=== PATIENT | female | born 1935 | race Caucasian/White ===

== ENCOUNTER 2017-10-05 16:45 | Inpatient (IN) | payer MEDICARE ==
[~2017-10-05] VITALS: Ht 157.5 cm; Wt 65.3 kg
[2017-10-05] VITALS (8 sets, daily range): BP systolic 130–176; BP diastolic 71–85; PULSE 82–98; RESP 16–22; TEMP 96.4–97.7; O2SAT 95–98
[~2017-10-05 16:45] MED LIST: ANTI2TAB PO; ATOR40TA PO; LOSA25TA31 PO; NAPR220T95 PO; ZOFR4TAB3 PO
[2017-10-05] MEDS ORDERED: LOSA25TA PO (17:03)
[2017-10-05] MEDS ORDERED: ATOR40TA16 PO (17:03)
[2017-10-05] MEDS ORDERED: [UNRECOGNIZED DRUG - OTHER] (17:03)
[2017-10-05] MEDS ORDERED: methylPREDNISolone SOD SUCC 125 MG/2 ML VIAL IV PUSH ONE (17:15)
[2017-10-05] MEDS: RESP: ALBUTEROL 2.5 MG/IPRATROPIUM 0.5 MG NEB (SCH) INH (17:20)
--- NOTE | 2017-10-05 17:22 | PD ---
HPI Chief Complaint: Respiratory Symptoms Time Seen by Provider: 16:57 Travel History International Travel<30 days: No Contact w/Intl Traveler<30days: No Traveled to known affect area: No History of Present Illness HPI 82yo F with PMH of asthma, HTN and pacemaker presents to the ED with c/o cough, sob and mild headache today. Said she went to urgent care and they sent her here because they said she was wheezing very badly. Pt was not given any medication at urgent care. Denies any fever, visual changes, chest pain, n/v, abdominal pain, focal weakness or numbness. Pt was using albuterol but just ran out of it. Said headache is mild, frontal and intermittent. PFSH Past Medical History Arthritis: Yes Heart Rhythm Problems: Yes (hilda) Cardiovascular Problems: Yes (htn on meds) High Cholesterol: Yes Diminished Hearing: No Respiratory: Yes (asthma) Influenza Vaccination: No ?: Not Menopausal: Yes Past Surgical History Cardiac Surgery: Yes (pacemaker ) Pacemaker: Yes ([employer] placed 2012) Tonsillectomy: Yes Other Surgery: Yes (thyroid -goiter removed - varicose veins -vein stripping) Social History Alcohol Use: Yes (occas. beer) Tobacco Use: No (40 yrs ago approx 1 ppd cigs) Substance Use: No Allergies-Medications (Allergen,Severity, Reaction): Coded Allergies: doxycycline (Verified Allergy, Intermediate, dizzy, 10/05/17) aspirin (Unverified Allergy, Mild, DIZZY, 10/05/17) Reported Meds & Prescriptions Reported Meds & Active Scripts Active Reported Pred Forte Opth 1% (Prednisolone Acetate Opth 1%) 1% Susp 1 Drop EACH EYE DAILY [AnuityIH powder] 100 Mg Losartan (Losartan Potassium) 25 Mg Tab 25 Mg PO DAILY Atorvastatin (Atorvastatin Calcium) 40 Mg Tab 40 Mg PO HS Review of Systems Except as stated in HPI: all other systems reviewed are Neg Physical Exam Narrative GENERAL: 82yo F in mild distress. SKIN: Focused skin assessment warm/dry. HEAD: Atraumatic. Normocephalic. EYES: Pupils equal and round at 3mm bilaterally. EOMI. No scleral icterus. No injection or drainage. ENT: No nasal bleeding or discharge. Mucous membranes pink and moist. NECK: Trachea midline. No JVD. CARDIOVASCULAR: Regular rate and rhythm. No murmur appreciated. RESPIRATORY: + accessory muscle use. Expiratory wheezing bilaterally. GASTROINTESTINAL: Abdomen soft, non-tender, nondistended. MUSCULOSKELETAL: No obvious deformities. No clubbing. No cyanosis. No edema. NEUROLOGICAL: Awake and alert. No obvious cranial nerve deficits. Motor grossly within normal limits in all extremities. Sensation intact. Normal speech. PSYCHIATRIC: Appropriate mood and affect; insight and judgment normal. Data Data Last Documented VS Vital Signs Date Time Temp Pulse Resp B/P (MAP) Pulse Ox O2 Delivery O2 Flow Rate FiO2 10/05/17 19:00 88 22 160/84 (109) 98 Room Air 10/05/17 16:49 97.7 Orders Orders Complete Blood Count With Diff (10/05/17 17:14) Basic Metabolic Panel (Bmp) (10/05/17 17:14) Troponin I (10/05/17 17:14) Chest, Single Ap (10/05/17 17:14) Methylprednisolone So Succ Inj (Solumedr (10/05/17 17:15) Albuterol-Ipratropium Neb (Duoneb Neb) (10/05/17 17:15) Guaifen-Cod 200-20 Mg/10ml Liq (Robituss (10/05/17 18:15) Albuterol Neb (Albuterol Neb) (10/05/17 18:15) Acetaminophen (Tylenol) (10/05/17 18:45) Admit Order (Ed Use Only) (10/05/17 19:10) Labs Laboratory Tests Test 10/05/17 17:30 White Blood Count 7.1 TH/MM3 Red Blood Count 4.85 MIL/MM3 Hemoglobin 15.1 GM/DL Hematocrit 45.3 % Mean Corpuscular Volume 93.3 FL Mean Corpuscular Hemoglobin 31.2 PG Mean Corpuscular Hemoglobin Concent 33.5 % Red Cell Distribution Width 12.0 % Platelet Count 174 TH/MM3 Mean Platelet Volume 8.8 FL Neutrophils (%) (Auto) 60.4 % Lymphocytes (%) (Auto) 24.6 % Monocytes (%) (Auto) 6.3 % Eosinophils (%) (Auto) 7.2 % Basophils (%) (Auto) 1.5 % Neutrophils # (Auto) 4.4 TH/MM3 Lymphocytes # (Auto) 1.7 TH/MM3 Monocytes # (Auto) 0.4 TH/MM3 Eosinophils # (Auto) 0.5 TH/MM3 Basophils # (Auto) 0.1 TH/MM3 CBC Comment DIFF FINAL Differential Comment Blood Urea Nitrogen 11 MG/DL Creatinine 0.73 MG/DL Random Glucose 104 MG/DL Calcium Level 8.8 MG/DL Sodium Level 142 MEQ/L Potassium Level 3.9 MEQ/L Chloride Level 109 MEQ/L Carbon Dioxide Level 25.6 MEQ/L Anion Gap 7 MEQ/L Estimat Glomerular Filtration Rate 77 ML/MIN Troponin I LESS THAN 0.02 NG/ML MDM Medical Decision Making Medical Screen Exam Complete: Yes Emergency Medical Condition: Yes Interpretation(s) EKG: NSR 80bpm. Normal axis. RBBB. Differential Diagnosis Asthma exacerbation vs. pneumonia vs. ACS vs. URI Narrative Course 82yo F with cough, sob and mild headache today. Pt has wheezing diffusely and given duonebs x3 and methylprednisolone. Labs reviewed, no leukocytosis. H/H normal. Troponin negative. CXR negative. Pt is saturating at 95% on RA. Afebrile. However, pt is tachypneic and reevaluated at bedside. Pt said she does not feel any better so given robitussin and albuterol neb x1. Pt reevaluated at bedside and still does not feel better. Pt is still wheezing and tachypneic and RR is about 30. Will need to admit for observation for asthma exacerbation. Discussed with Dr. Powell's PA and accepted to her service. Diagnosis Primary Impression: Asthma exacerbation Qualified Codes: J45.901 - Unspecified asthma with (acute) exacerbation Admitting Information Admitting Physician Requests: Observation Jolanta Abbasi DO Oct 05, 2017 17:22
[2017-10-05 17:40] LABS: AUTOMATED NEUTROPHIL # 4.4 TH/MM3 (1.8-7.7); BASOPHIL # 0.1 TH/MM3 (0-0.2); BASOPHIL % 1.5 % (0.0-2.0); EOSINOPHIL # 0.5 TH/MM3 (0-0.4); EOSINOPHIL % 7.2 % (0.0-4.0); HEMATOCRIT 45.3 % (35.0-46.0); HEMOGLOBIN 15.1 GM/DL (11.6-15.3); LYMPH % 24.6 % (9.0-44.0); LYMPHOCYTE # 1.7 TH/MM3 (1.0-4.8); MEAN CELL VOLUME 93.3 FL (80.0-100.0); MEAN CORPUSCULAR HEMOGLOBIN 31.2 PG (27.0-34.0); MEAN CORPUSCULAR HGB CONC 33.5 % (32.0-36.0); MEAN PLATELET VOLUME 8.8 FL (7.0-11.0); MONO % 6.3 % (0.0-8.0); MONOCYTE # 0.4 TH/MM3 (0-0.9); NEUT % 60.4 % (16.0-70.0); PLATELET COUNT 174 TH/MM3 (150-450); RED BLOOD COUNT 4.85 MIL/MM3 (4.00-5.30); WHITE BLOOD COUNT 7.1 TH/MM3 (4.0-11.0)
[2017-10-05 17:50] LABS: CHLORIDE 109 MEQ/L (98-107); SODIUM (NA) 142 MEQ/L (136-145)
[2017-10-05 17:53] LABS: BICARBONATE 25.6 MEQ/L (21.0-32.0); CALCIUM 8.8 MG/DL (8.5-10.1); GLUCOSE,RANDOM 104 MG/DL (74-106)
[2017-10-05 17:54] LABS: BLOOD UREA NITROGEN 11 MG/DL (7-18)
[2017-10-05 17:57] LABS: CREATININE 0.73 MG/DL (0.50-1.00); GLOMERULAR FILTRATION RATE 77 ML/MIN (>89)
--- NOTE | 2017-10-05 17:57 | RADRPT ---
EXAM DATE: 10/05/2017 5:53 PM EDT AGE/SEX: 82 years / Female INDICATIONS: Cough, congestion, and shortness of breath. CLINICAL DATA: This is the patient's initial encounter. Patient reports that signs and symptoms have been present for 3 days and indicates a pain score of 0/10. MEDICAL/SURGICAL HISTORY: None. Pacemaker. COMPARISON: No prior exams available for comparison. FINDINGS: Pacemaker in good position in the left. The heart and pulmonary vascularity are normal. The lungs are clear. Mild degenerative changes both AC joints. CONCLUSION: Negative chest for acute disease Electronically signed by: Trell Ureña MD 10/05/2017 5:56 PM EDT
[2017-10-05 18:01] LABS: TROPONIN I LESS THAN 0.02 NG/ML (0.02-0.05)
[2017-10-05] MEDS ORDERED: guaiFENesin/CODEINE SYRUP 200 MG/20 MG/10 ML CUP PO ONE (18:15)
[2017-10-05] MEDS ORDERED: RESP: ALBUTEROL 2.5 MG/3 ML NEB (SCH) NEB ONE (18:15)
[2017-10-05] MEDS ORDERED: ACETAMINOPHEN 325 MG TAB PO ONE (18:45)
[2017-10-05] MEDS ORDERED: RESP: ALBUTEROL 2.5 MG/3 ML NEB (PRN) NEB (19:15)
[2017-10-05] MEDS ORDERED: SODIUM CHLORIDE 0.9% FLUSH 10 ML FLUSH IV FLUSH PRN (19:15)
[2017-10-05] MEDS ORDERED: NALOXONE HCL 0.4 MG/ML AMP IV PUSH PRN (19:15)
[2017-10-05] MEDS ORDERED: ACETAMINOPHEN 325 MG TAB PO PRN (19:15)
[2017-10-05] MEDS ORDERED: PRED1SUS EACH EYE (20:40)
[2017-10-05] MEDS: RESP: ALBUTEROL 2.5 MG/IPRATROPIUM 0.5 MG NEB (SCH) NEB (21:01)
[2017-10-05] MEDS: ENOXAPARIN SODIUM 40 MG/0.4 ML SYRINGE SQ SCH (21:52)
[2017-10-05] MEDS: SODIUM CHLORIDE 0.9% FLUSH 10 ML FLUSH IV FLUSH SCH (21:52)
[2017-10-05] MEDS: ATORVASTATIN 40 MG TAB PO SCH (21:52)
[2017-10-06] VITALS (10 sets, daily range): BP systolic 107–150; BP diastolic 56–74; PULSE 88–107; RESP 20–21; TEMP 96.5–98.7; O2SAT 95–100
[2017-10-06] MEDS: methylPREDNISolone SOD SUCC 125 MG/2 ML VIAL IV PUSH SCH ×2 (00:46→05:39)
[2017-10-06] MEDS: RESP: ALBUTEROL 2.5 MG/IPRATROPIUM 0.5 MG NEB (SCH) NEB (03:44)
[2017-10-06 05:33] LABS: AUTOMATED NEUTROPHIL # 9.3 TH/MM3 (1.8-7.7); BASOPHIL % 0.3 % (0.0-2.0); EOSINOPHIL % 0.1 % (0.0-4.0); HEMATOCRIT 44.5 % (35.0-46.0); HEMOGLOBIN 14.7 GM/DL (11.6-15.3); LYMPH % 6.3 % (9.0-44.0); LYMPHOCYTE # 0.6 TH/MM3 (1.0-4.8); MEAN CELL VOLUME 94.3 FL (80.0-100.0); MEAN CORPUSCULAR HEMOGLOBIN 31.2 PG (27.0-34.0); MEAN CORPUSCULAR HGB CONC 33.1 % (32.0-36.0); MEAN PLATELET VOLUME 9.3 FL (7.0-11.0); MONO % 0.5 % (0.0-8.0); NEUT % 92.8 % (16.0-70.0); PLATELET COUNT 182 TH/MM3 (150-450); RED BLOOD COUNT 4.72 MIL/MM3 (4.00-5.30); RED CELL DISTRIBUTION WIDTH 12.2 % (11.6-17.2); WHITE BLOOD COUNT 9.9 TH/MM3 (4.0-11.0)
[2017-10-06 05:54] LABS: BICARBONATE 14.5 MEQ/L (21.0-32.0); CREATININE 1.3 MG/DL (0.50-1.00)
[2017-10-06] MEDS ORDERED: RESP: ALBUTEROL 2.5 MG/IPRATROPIUM 0.5 MG NEB (SCH) NEB (08:00)
[2017-10-06] MEDS: SODIUM CHLORIDE 0.9% FLUSH 10 ML FLUSH IV FLUSH SCH ×2 (08:21→21:45)
[2017-10-06] MEDS: LOSARTAN 25 MG TAB PO SCH (08:21)
--- NOTE | 2017-10-06 08:41 | HHI.HP ---
[facility] Service [facility] Primary Care Physician Ed Suresh MD Admission Diagnosis Asthma exacerbation Diagnoses: (1) Asthma exacerbation Chief Complaint: Shortness of breath Cough Travel History International Travel<30 Days: No Contact w/Intl Traveler <30 Da: No Traveled to Known Affected Are: No History of Present Illness This is a pleasant 82-year-old female patient with a known medical history of hypertension, hyperlipidemia, and asthma who presented to the ED with complaints of worsening nonproductive cough, shortness of breath and headache. Patient states that she went to the urgent care yesterday due to audible wheezing and worsening shortness of breath. Patient states that the urgent care sent her over to the emergency department. Patient states that her symptoms started roughly around Wednesday and had noticed she was using her rescue inhaler more often than normal up to 3 times per day. Patient actually saw her PCP on Wednesday for checkup and blood work which were reportedly unremarkable. She does state that she follows with the undertaker assistant but does not remember the name. She also follows with a manager lab for management of her pacemaker. Patient denies any recent illness including fever, chills, abdominal pain, nausea, vomiting, diarrhea or dysuria. She does admit to a mild headache associated with her cough and shortness of breath. She does admit to overall fatigue despite adequate appetite and sleeping well. PCP is Dr. Suresh. Review of Systems Constitutional: COMPLAINS OF: Fatigue, DENIES: Fever, Chills Eyes: DENIES: Blurred vision, Diplopia Ears, nose, mouth, throat: DENIES: Hearing loss Respiratory: COMPLAINS OF: Cough, Wheezing, Shortness of breath, DENIES: Sputum production Cardiovascular: DENIES: Chest pain, Palpitations Gastrointestinal: DENIES: Abdominal pain, Black stools, Bloody stools, Constipation, Diarrhea, Nausea, Vomiting Musculoskeletal: DENIES: Joint pain Hematologic/lymphatic: DENIES: Bruising Immunologic/allergic: DENIES: Eczema Neurologic: DENIES: Abnormal gait Psychiatric: COMPLAINS OF: Anxiety Except as stated in HPI: all other systems reviewed are Neg Past Family Social History Past Medical History Asthma Hyperlipidemia Hypertension Past Surgical History Pacemaker placement due to bradycardia, Drimmi 2013 Tonsillectomy Removal of thyroid goiter Vein stripping for varicose veins Bilateral cataracts Reported Medications Active Reported Pred Forte Opth 1% (Prednisolone Acetate Opth 1%) 1% Susp 1 Drop EACH EYE DAILY [AnuityIH powder] 100 Mg Losartan (Losartan Potassium) 25 Mg Tab 25 Mg PO DAILY Atorvastatin (Atorvastatin Calcium) 40 Mg Tab 40 Mg PO HS Allergies: Coded Allergies: doxycycline (Verified Allergy, Intermediate, dizzy, 10/05/17) aspirin (Unverified Allergy, Mild, DIZZY, 10/05/17) Active Ordered Medications Current Medications Medications (Trade) Dose Ordered Sig/Halina Route Start Time Stop Time Status Last Admin (NS Flush) 2 ml UNSCH PRN IV FLUSH 10/05/17 19:15 (NS Flush) 2 ml BID IV FLUSH 10/05/17 21:00 10/06/17 08:21 (Tylenol) 650 mg Q4H PRN PO 10/05/17 19:15 (Lovenox Inj) 40 mg Q24H SQ 10/05/17 20:00 10/05/17 21:52 (Narcan Inj) 0.4 mg UNSCH PRN IV PUSH 10/05/17 19:15 (Lipitor) 40 mg HS PO 10/05/17 21:00 10/05/17 21:52 (Cozaar) 25 mg DAILY PO 10/06/17 09:00 10/06/17 08:21 (Albuterol Neb) 2.5 mg Q2HR NEB PRN NEB 10/05/17 19:15 Sodium Chloride 1,000 ml @ 84 mls/hr [id number] IV 10/06/17 09:00 (D50w (Vial) Inj) 50 ml UNSCH PRN IV PUSH 10/06/17 09:15 (Glucagon Inj) 1 mg UNSCH PRN OTHER 10/06/17 09:15 (NovoLOG SUPPLEMENTAL SCALE) 1 ACHS SLIDING SCALE SQ 10/06/17 12:00 (SoluMEDROL INJ) 40 mg Q8HR IV PUSH 10/06/17 14:00 (Pred Forte 1% Opth Susp) 1 drop DAILY EACH EYE 10/06/17 10:30 (Atrovent Neb) 0.5 mg Q6HR WHILE AWAKE NEB NEB 10/06/17 14:00 Family History Denies any significant family medical history. Social History Does admit to smoking 1 pack/day cigarettes, she quit 40 years ago. Does admit to occasional beer once per month. Denies any illicit drug use. Physical Exam Vital Signs Vital Signs Date Time Temp Pulse Resp B/P (MAP) Pulse Ox O2 Delivery O2 Flow Rate FiO2 10/06/17 08:00 98.2 100 21 142/74 (96) 96 10/06/17 07:41 100 21 10/06/17 04:00 96.5 107 20 120/65 (83) 95 10/06/17 00:00 96.5 105 20 107/56 (73) 96 10/05/17 21:02 96 21 10/05/17 20:30 96.4 92 20 130/76 (94) 98 10/05/17 20:15 98 10/05/17 20:03 91 20 132/80 (97) 97 10/05/17 19:30 90 22 132/71 (91) 98 Room Air 10/05/17 19:00 88 22 160/84 (109) 98 Room Air 10/05/17 19:00 88 22 98 Room Air 10/05/17 18:07 84 16 136/85 (102) 95 Room Air 10/05/17 17:04 95 Room Air 10/05/17 16:49 97.7 82 16 176/84 (114) 97 Physical Exam GENERAL: Well-developed, well-nourished patient in [facility]. SKIN: Warm and dry. No rash. HEAD: Normocephalic. Atraumatic. EYES: Pupils equal and round. No scleral icterus. No injection or drainage. ENT: No nasal bleeding or discharge. Mucous membranes pink and moist. NECK: Supple. Trachea midline. CARDIOVASCULAR: Sinus tachycardia. S1, S2 noted. No murmur appreciated. RESPIRATORY: No accessory muscle use. Diffuse expiratory wheezing. Breath sounds equal bilaterally. GASTROINTESTINAL: Abdomen soft, non-tender, nondistended. Normoactive bowel sounds x4. MUSCULOSKELETAL: No obvious deformities. Extremities without clubbing, cyanosis , or edema. NEUROLOGICAL: Awake and alert. No obvious cranial nerve deficits. Motor grossly within normal limits. 5/5 muscle strength in bilateral upper and lower extremities. Normal speech. PSYCHIATRIC: Appropriate mood and affect; insight and judgment normal. Laboratory Laboratory Tests Test 10/05/17 17:30 10/06/17 05:10 White Blood Count 7.1 9.9 Red Blood Count 4.85 4.72 Hemoglobin 15.1 14.7 Hematocrit 45.3 44.5 Mean Corpuscular Volume 93.3 94.3 Mean Corpuscular Hemoglobin 31.2 31.2 Mean Corpuscular Hemoglobin Concent 33.5 33.1 Red Cell Distribution Width 12.0 12.2 Platelet Count 174 182 Mean Platelet Volume 8.8 9.3 Neutrophils (%) (Auto) 60.4 92.8 Lymphocytes (%) (Auto) 24.6 6.3 Monocytes (%) (Auto) 6.3 0.5 Eosinophils (%) (Auto) 7.2 0.1 Basophils (%) (Auto) 1.5 0.3 Neutrophils # (Auto) 4.4 9.3 Lymphocytes # (Auto) 1.7 0.6 Monocytes # (Auto) 0.4 0.0 Eosinophils # (Auto) 0.5 0.0 Basophils # (Auto) 0.1 0.0 CBC Comment DIFF FINAL DIFF FINAL Differential Comment Blood Urea Nitrogen 11 19 Creatinine 0.73 1.30 Random Glucose 104 287 Calcium Level 8.8 9.0 Sodium Level 142 140 Potassium Level 3.9 3.2 Chloride Level 109 106 Carbon Dioxide Level 25.6 14.5 Anion Gap 7 20 Estimat Glomerular Filtration Rate 77 39 Troponin I LESS THAN 0.02 Result Diagram: 10/06/17 0510 10/06/17 0510 Imaging Last Impressions Chest X-Ray 10/05/17 1714 Signed Impressions: CONCLUSION: Negative chest for acute disease Septic Shock Reassessment Septic shock perfusion: reassessment completed Caprini VTE Risk Assessment Caprini VTE Risk Assessment: Mod/High Risk (score >= 2) Caprini Risk Assessment Model Point Value = 1 Point Value = 2 Point Value = 3 Point Value = 5 Age 41-60 Minor surgery BMI > 25 kg/m2 Swollen legs Varicose veins or History of unexplained or recurrent spontaneous Oral contraceptives or hormone replacement Sepsis (< 1 month) Serious lung disease, including pneumonia (< 1 month) Abnormal pulmonary function Acute myocardial infarction Congestive heart failure (< 1 month) History of inflammatory bowel disease Medical patient at bed rest Age 61-74 Arthroscopic surgery Major open surgery (> 45 min) Laparoscopic surgery (> 45 min) Malignancy Confined to bed (> 72 hours) Immobilizing plaster cast Central venous access Age >= 75 History of VTE Family history of VTE Factor V Leiden Prothrombin [id number] Lupus anticoagulant Anticardiolipin antibodies Elevated serum homocysteine Heparin-induced thrombocytopenia Other congenital or acquired thrombophilia Stroke (< 1 month) Elective arthroplasty Hip, pelvis, or leg fracture Acute spinal cord injury (< 1 month) Prophylaxis Regimen Total Risk Factor Score Risk Level Prophylaxis Regimen 0-1 Low Early ambulation 2 Moderate Order ONE of the following: *Sequential Compression Device (SCD) *Heparin 5000 units SQ BID 3-4 Higher Order ONE of the following medications: *Heparin 5000 units SQ TID *Enoxaparin/Lovenox 40 mg SQ daily (WT < 150 kg, CrCl > 30 mL/min) *Enoxaparin/Lovenox 30 mg SQ daily (WT < 150 kg, CrCl > 10-29 mL/min) *Enoxaparin/Lovenox 30 mg SQ BID (WT < 150 kg, CrCl > 30 mL/min) AND/OR *Sequential Compression Device (SCD) 5 or more Highest Order ONE of the following medications: *Heparin 5000 units SQ TID (Preferred with Epidurals) *Enoxaparin/Lovenox 40 mg SQ daily (WT < 150 kg, CrCl > 30 mL/min) *Enoxaparin/Lovenox 30 mg SQ daily (WT < 150 kg, CrCl > 10-29 mL/min) *Enoxaparin/Lovenox 30 mg SQ BID (WT < 150 kg, CrCl > 30 mL/min) AND *Sequential Compression Device (SCD) Assessment and Plan Problem List: (1) Asthma exacerbation ICD Code: J45.901 - Unspecified asthma with (acute) exacerbation Status: Acute Assessment and Plan This is a pleasant 82-year-old female patient with a known medical history of hypertension, hyperlipidemia, and asthma who presented to the ED with complaints of worsening nonproductive cough, shortness of breath and headache. Asthma exacerbation - Chest x-ray reviewed negative for any acute disease. - Was started on duo nebs as needed for shortness of breath/wheezing. Started on Atrovent. - Will continue cardiac telemetry, patient has been tachycardic. Likely secondary to steroids. Exacerbation. - Will continue IV steroids. Wean. Hyperglycemic suspect secondary to steroids. Accu-Chek while on steroids, cover with insulin as needed, tight blood sugar control. - Robitussin for cough as needed. - Supplemental O2 as needed, patient is comfortable on room air with adequate oxygen saturations. - PT this morning to work with patient, appreciate input and recommendations. Hypokalemia: Potassium 3.2 today. We will add replacement. Acute kidney injury - Creatinine 0.73 on presentation. Overnight creatinine bumped to 1.3. - Will order IV fluids. - Follow BMP this afternoon. Hyperlipidemia, chronic: We will continue home statin. Hypertension, chronic: We will continue home medications. Monitor blood pressure trends. DVT prophylaxis: SCDs. Lovenox. Problem Qualifiers (1) Asthma exacerbation: Qualified Codes: J45.901 - Unspecified asthma with (acute) exacerbation Falguni Contreras Oct 06, 2017 08:41
[2017-10-06] MEDS ORDERED: POTASSIUM CHLORIDE 10 MEQ CONTROLLED RELEASE TAB PO ONE (09:00)
[2017-10-06] MEDS: SODIUM CHLOR 0.9% 1000 ML INJ 1,000 ML IV SCH ×2 (09:00→20:59)
--- NOTE | 2017-10-06 09:13 | EKG ---
Date Performed: 10/05/2017 Time Performed: 17:01:28 PTAGE: 82 years EKG: Sinus rhythm RIGHT BUNDLE BRANCH BLOCK ABNORMAL ECG NO PREVIOUS TRACING DOCTOR: You Montalvo Interpretating Date/Time 10/06/2017 09:11:46
[2017-10-06] MEDS ORDERED: GLUCAGON 1 MG/ML VIAL OTHER PRN (09:15)
[2017-10-06] MEDS ORDERED: DEXTROSE 50% IN WATER 50 ML VIAL(D50) IV PUSH PRN (09:15)
[2017-10-06] MEDS ORDERED: guaiFENesin/DEXTROMETHORPHAN 200 MG/20 MG/10 ML CUP PO PRN (10:15)
[2017-10-06] MEDS: prednisoLONE ACETATE 1% OPHT SUSP 5 ML BTL EACH EYE SCH (11:11)
[2017-10-06] MEDS: INSULIN ASPART SUPPLEMENTAL SCALE SQ SCH ×3 (12:00→21:00)
[2017-10-06] MEDS: RESP: IPRATROPIUM 0.5 MG/2.5 ML NEB NEB SCH ×2 (13:23→20:05)
[2017-10-06 13:35] LABS: CALCIUM 9.3 MG/DL (8.5-10.1)
[2017-10-06 13:36] LABS: BICARBONATE 20.1 MEQ/L (21.0-32.0)
[2017-10-06 13:39] LABS: CREATININE 1.2 MG/DL (0.50-1.00)
[2017-10-06] MEDS ORDERED: SODIUM CHLOR 0.9% 1000 ML INJ 1,000 ML IV ONE (13:45)
[2017-10-06 14:07] LABS: LACTIC ACID SEPSIS PROTOCOL 7.5 mmol/L (0.4-2.0)
[2017-10-06] MEDS: methylPREDNISolone SOD SUCC 40 MG/1 ML VIAL IV PUSH SCH ×2 (14:10→21:45)
[2017-10-06 14:34] LABS: CHLORIDE 102 MEQ/L (98-107); SODIUM (NA) 137 MEQ/L (136-145)
[2017-10-06 14:37] LABS: ALBUMIN 3.7 GM/DL (3.4-5.0); BICARBONATE 19.4 MEQ/L (21.0-32.0); CALCIUM 9.4 MG/DL (8.5-10.1); GLUCOSE,RANDOM 283 MG/DL (74-106)
[2017-10-06 14:38] LABS: BLOOD UREA NITROGEN 21 MG/DL (7-18)
[2017-10-06 14:40] LABS: ALT (GPT) 40 U/L (10-53); AST (GOT) 17 U/L (15-37)
[2017-10-06 14:41] LABS: GLOMERULAR FILTRATION RATE 43 ML/MIN (>89)
[2017-10-06 14:42] LABS: TOTAL BILIRUBIN ADULT 0.3 MG/DL (0.2-1.0); TOTAL PROTEIN 7.7 GM/DL (6.4-8.2)
[2017-10-06 14:43] LABS: ALKALINE PHOSPHATASE 126 U/L (45-117)
[2017-10-06 18:17] LABS: ACETAMINOPHEN LESS THAN 2.0 MCG/ML (10.0-30.0)
[2017-10-06 20:53] LABS: BILIRUBIN, URINE NEG (NEG); BLOOD, URINE TRACE (NEG); GLUCOSE,URINE 1000 OR GREATER mg/dL (NEG); KETONE, URINE TRACE mg/dL (NEG); NITRITE,URINE NEG (NEG); PH, URINE 5.5 (5.0-8.5); URINE COLOR YELLOW (YELLW/STRAW); URINE LEUKOCYTE ESTERASE NEG (NEG)
[2017-10-06] MEDS: ENOXAPARIN SODIUM 40 MG/0.4 ML SYRINGE SQ SCH (20:57)
[2017-10-06 21:44] LABS: WBC, URINE 0-2 /hpf (0-5)
[2017-10-06 21:45] LABS: SQUAMOUS EPITHELIAL CELL URINE 0-5 /hpf (0-5)
[2017-10-06] MEDS: ATORVASTATIN 40 MG TAB PO SCH (21:45)
[2017-10-07] VITALS (9 sets, daily range): BP systolic 121–158; BP diastolic 67–78; PULSE 73–87; RESP 16–20; TEMP 96.5–98.2; O2SAT 94–98
[2017-10-07] MEDS: methylPREDNISolone SOD SUCC 40 MG/1 ML VIAL IV PUSH SCH ×2 (05:14→20:11)
[2017-10-07] MEDS: SODIUM CHLOR 0.9% 1000 ML INJ 1,000 ML IV SCH ×2 (05:16→17:04)
[2017-10-07 06:27] LABS: BICARBONATE 20.2 MEQ/L (21.0-32.0); CALCIUM 8.6 MG/DL (8.5-10.1); CREATININE 0.95 MG/DL (0.50-1.00); TROPONIN I 0.06 NG/ML (0.02-0.05)
[2017-10-07] MEDS: RESP: IPRATROPIUM 0.5 MG/2.5 ML NEB NEB SCH ×2 (07:38→14:16)
[2017-10-07] MEDS: prednisoLONE ACETATE 1% OPHT SUSP 5 ML BTL EACH EYE SCH (09:17)
[2017-10-07] MEDS: LOSARTAN 25 MG TAB PO SCH (09:17)
[2017-10-07] MEDS: INSULIN ASPART SUPPLEMENTAL SCALE SQ SCH ×4 (09:18→20:09)
[2017-10-07] MEDS: SODIUM CHLORIDE 0.9% FLUSH 10 ML FLUSH IV FLUSH SCH ×2 (09:19→19:28)
--- NOTE | 2017-10-07 09:56 | HHI.PR ---
Subjective Remarks Follow-up asthma exacerbation, elevated lactic acid. Patient seen and examined , sitting up in chair. States she made her bed and brush her teeth today still complains of shortness of breath and wheezing. Has been eating okay, denies any abdominal pain, nausea or vomiting. Does have mild rhabdomyolysis today with mildly elevated troponins. Denies any chest pain. EKG negative for ST changes. Vital signs stable. Afebrile. Continued IV fluid. Spoke to daughter on phone, updated about patient's status. Pulmonology consulted. Objective Vitals Vital Signs Date Time Temp Pulse Resp B/P (MAP) Pulse Ox O2 Delivery O2 Flow Rate FiO2 10/07/17 08:53 97.3 87 16 158/78 (104) 97 10/07/17 07:38 98 21 10/07/17 05:08 94 10/07/17 00:00 97.1 85 20 125/72 (89) 98 10/06/17 20:15 90 10/06/17 20:05 97 Nasal Cannula 2.00 10/06/17 20:00 96.9 90 20 140/68 (92) 96 10/06/17 16:00 97.8 92 20 136/66 (89) 97 10/06/17 13:58 100 Nasal Cannula 2.00 10/06/17 12:00 98.7 88 21 150/70 (96) 95 I/O 10/06/17 10/06/17 10/06/17 10/07/17 10/07/17 10/07/17 07:00 15:00 23:00 07:00 15:00 23:00 Intake Total 480 ml 120 ml 850 ml 1620 ml Output Total 700 ml Balance 480 ml 120 ml 150 ml 1620 ml Intake Oral 480 ml 120 ml 850 ml 720 ml IV Total 900 ml Output Urine Total 700 ml # Voids 1 3 # Bowel Movements 0 0 Result Diagram: 10/06/17 0510 10/07/17 0500 Imaging Last Impressions Chest X-Ray 10/05/17 1714 Signed Impressions: CONCLUSION: Negative chest for acute disease Objective Remarks GENERAL: Well-developed, well-nourished patient in [facility]. SKIN: Warm and dry. No rash. HEAD: Normocephalic. Atraumatic. EYES: Pupils equal and round. No scleral icterus. No injection or drainage. ENT: No nasal bleeding or discharge. Mucous membranes pink and moist. NECK: Supple. Trachea midline. CARDIOVASCULAR: Sinus tachycardia. S1, S2 noted. No murmur appreciated. RESPIRATORY: No accessory muscle use. Diffuse expiratory wheezing. Breath sounds equal bilaterally. GASTROINTESTINAL: Abdomen soft, non-tender, nondistended. Normoactive bowel sounds x4. MUSCULOSKELETAL: No obvious deformities. Extremities without clubbing, cyanosis , or edema. NEUROLOGICAL: Awake and alert. No obvious cranial nerve deficits. Motor grossly within normal limits. 5/5 muscle strength in bilateral upper and lower extremities. Normal speech. PSYCHIATRIC: Appropriate mood and affect; insight and judgment normal. A/P Problem List: (1) Asthma exacerbation ICD Code: J45.901 - Unspecified asthma with (acute) exacerbation Status: Acute Assessment and Plan This is a pleasant 82-year-old female patient with a known medical history of hypertension, hyperlipidemia, and asthma who presented to the ED with complaints of worsening nonproductive cough, shortness of breath and headache. Asthma exacerbation - Chest x-ray reviewed negative for any acute disease. - Was started on duo nebs as needed for shortness of breath/wheezing. Started on Atrovent due to tachycardia. - Will continue cardiac telemetry, patient has been tachycardic. Likely secondary to steroids. Exacerbation. - Will continue IV steroids. Wean. Hyperglycemic suspect secondary to steroids. Accu-Chek while on steroids, cover with insulin as needed, tight blood sugar control. - Robitussin for cough as needed. - Supplemental O2 as needed, patient is comfortable on room air with adequate oxygen saturations. - PT this morning to work with patient, appreciate input and recommendations. - Consult placed to pulmonology, input and recommendations Hypokalemia: Status post replacement. Resolved. Acute kidney injury. Resolved. - Creatinine 0.73 on presentation. Overnight creatinine bumped to 1.3. Now 0.95. - Continue IV fluids. Rhabdomyolysis, mild Elevated troponin possibly suspect secondary to asthma exacerbation Elevated lactic acid - Lactic acid 7.5, 6.6, 3.3. Troponin 0.06, 0.07. CPK 809. Status post 1 L NS Bolus. Continue IVF. - Serial EKGs reviewed showing controlled heart rate with RBBB. No ST changes. - Will obtain echocardiogram, follow. Patient will also undergo a Lexiscan in am, to further evaluate for any ischemia. Hyperlipidemia, chronic: Will continue home statin. Hypertension, chronic: Will continue home medications. Monitor blood pressure trends. DVT prophylaxis: SCDs. Lovenox. Problem Qualifiers (1) Asthma exacerbation: Qualified Codes: J45.901 - Unspecified asthma with (acute) exacerbation Falguni Contreras Oct 07, 2017 09:56
[2017-10-07 11:42] LABS: TROPONIN I 0.07 NG/ML (0.02-0.05)
[2017-10-07] MEDS ORDERED: RESP: ALBUTEROL 2.5 MG/IPRATROPIUM 0.5 MG NEB (PRN) NEB (14:30)
--- NOTE | 2017-10-07 18:33 | EKG ---
Date Performed: 10/07/2017 Time Performed: 10:49:09 PTAGE: 82 years EKG: Sinus rhythm RIGHT BUNDLE BRANCH BLOCK ABNORMAL ECG PREVIOUS TRACING : 10/05/2017 17.01 Since the previous tracing, no significant change noted DOCTOR: Nela Rodriguez Interpretating Date/Time 10/07/2017 18:31:45
--- NOTE | 2017-10-07 19:59 | MB ---
cc: Lynn Perrin MD, V J MD DATE: 10/07/2017 REASON FOR CONSULTATION: Asthma and respiratory distress. HISTORY OF PRESENT ILLNESS: This is an 82-year-old lady with a past history of chronic bronchitis and asthma who was admitted through the emergency room with progressive shortness of breath over the past 3 days. The patient does have a Ventolin inhaler, which apparently did not help. She has previously been seen by Dr. Chowdhury and has had CAT scans and PFTs done. Recently, she has not been on any specific medications except the rescue inhaler. She apparently also has had a lung nodule noticed on a previous CAT scan. She denies any history for hemoptysis, fevers or chills. Upon admission to the hospital, a chest x-ray was done which reportedly was clear. Since admission, she has been on IV Solu-Medrol nebulized bronchodilators and also has been on a cough medicine including Robitussin, but does not seem to be improving. White count was elevated. PAST MEDICAL HISTORY: Has included a history of recurrent bronchitis and asthma. She has a history of permanent pacemaker placement, history of hyperlipidemia and hypertension and a history for tonsillectomy remotely and thyroid resection for goiter and varicose vein stripping. She has had cataract surgery with implants. HABITS: The patient smoked 1 pack per day for 20 years and then quit. No significant alcohol use. ALLERGIES: DOXYCYCLINE AND ASPIRIN. FAMILY HISTORY: Essentially noncontributory. REVIEW OF SYSTEMS: The patient denies recent weight loss. She has had no leg swelling. Denies headaches or blackouts. She does have some sinus drainage and postnasal drip. She has epigastric distress, reflux and trouble swallowing due to some esophageal disorder and thus she takes only soft food. She has no skin rashes and has had no anxiety or depression. PHYSICAL EXAMINATION: GENERAL: This is an averagely, elderly lady who is in no acute distress. No pallor. No clubbing or peripheral edema. VITAL SIGNS: Blood pressure 130/70, pulse is 92, respirations 16, temperature 97.2. HEENT: Head is normocephalic. Pupils are reactive and equal. Tongue is moist. Throat is injected. Nasal mucosa is clear. NECK: Supple without venous distention. No thyromegaly or lymphadenopathy. CHEST: Equal movements with an increased AP diameter. Percussion note resonant throughout. Diffuse wheezes throughout both lung ferrera, prolonged expirations. HEART: The heart sounds were regular, S1 and S2 with no murmur. ABDOMEN: Soft, protuberant without masses. No organomegaly or tenderness. EXTREMITIES: No lesions. Peripheral pulses are diminished. NEUROLOGIC: Reflexes are 1+ with no gross motor deficits. Cranial nerves grossly intact. IMPRESSION: 1. Asthmatic bronchitis. 2. Chronic obstructive pulmonary disease. 3. Lung nodule. 4. History of hypertension. PLAN: The patient is already on nebulized DuoNeb solution q.i.d., which we will continue. She will be placed on Solu-Medrol 40 mg IV every 8 hours. A bedside pulmonary function study will be done. She will be placed on Zithromax 500 mg daily x 3 days. We will get a sputum culture if she coughs up any sputum. I started her on Symbicort 160/4.5 two puffs twice daily. A CT scan of the chest to evaluate the lung nodule. I will review these tests and follow the case with you. Thank you for this consultation. Lynn Perrin MD VJD/ , 07:26 PM , 07:57 PM
--- NOTE | 2017-10-07 20:02 | RADRPT ---
EXAM DATE: 10/07/2017 7:51 PM EDT AGE/SEX: 82 years / Female INDICATIONS: Lung nodule, cough, shortness of breath. CLINICAL DATA: This is the patient's initial encounter. Patient reports that signs and symptoms have been present for 1 day and indicates a pain score of 0/10. MEDICAL/SURGICAL HISTORY: Cardiovascular disease. Hypertension. Asthma. Thyroid disease. Pacem matt. Tonsillectomy. Thyroid goiter removed. RADIATION DOSE: 12.13 CTDI (mGy) COMPARISON: POI, CT CHEST W/O CONTRAST, 05/10/2017. . TECHNIQUE: Multiple contiguous axial images were obtained through the chest without contrast. Image s were obtained in suspended respiration using multiple row detector helical technique. Using automa moise exposure control and adjustment of the mA and/or kV according to patient size, radiation dose was kept as low as reasonably achievable to obtain optimal diagnostic quality images. FINDINGS: Lungs: Minimal density in the left lower lobe obscures previously identified nodule. No infiltrates or concerning nodular densities are seen. Small nodule right upper lobe is stable measuring 2 to 3 m m. Mediastinum: There is good visualization of the great vessels of the middle mediastinum. No evidenc e of mediastinal or hilar adenopathy/mass. Pleurae: No evidence of focal thickening or pleural effusion. Axillae: Unremarkable. Bony Structures: Unremarkable. Miscellaneous: The examination was extended to include the upper abdomen, and both adrenal glands ar e normal in size and configuration. CONCLUSION: 1. Nodule in the left lower lobe is obscured by minimal density, likely atelectasis. 2. No infiltrate or mass. 3. Tiny nodule right upper lobe laterally is stable and benign Electronically signed by: Chago Milligan MD 10/07/2017 8:01 PM EDT
[2017-10-07] MEDS: RESP: ALBUTEROL 2.5 MG/IPRATROPIUM 0.5 MG NEB (SCH) NEB (20:06)
[2017-10-07] MEDS: ENOXAPARIN SODIUM 40 MG/0.4 ML SYRINGE SQ SCH (20:09)
[2017-10-07] MEDS: ATORVASTATIN 40 MG TAB PO SCH (20:09)
[2017-10-07] MEDS: BUDESONIDE-FORMOTEROL 160/4.5 MCG INHALER INH SCH (20:11)
[2017-10-08] VITALS (9 sets, daily range): BP systolic 124–162; BP diastolic 70–79; PULSE 68–103; RESP 18–20; TEMP 96.4–97.3; O2SAT 94–99
[2017-10-08 05:05] LABS: AUTOMATED NEUTROPHIL # 16.8 TH/MM3 (1.8-7.7); BASOPHIL # 0.3 TH/MM3 (0-0.2); BASOPHIL % 1.6 % (0.0-2.0); EOSINOPHIL % 0.1 % (0.0-4.0); HEMATOCRIT 39.5 % (35.0-46.0); LYMPH % 6.5 % (9.0-44.0); LYMPHOCYTE # 1.2 TH/MM3 (1.0-4.8); MEAN CELL VOLUME 93.7 FL (80.0-100.0); MEAN CORPUSCULAR HEMOGLOBIN 30.8 PG (27.0-34.0); MEAN CORPUSCULAR HGB CONC 32.9 % (32.0-36.0); MEAN PLATELET VOLUME 9.7 FL (7.0-11.0); MONO % 1.5 % (0.0-8.0); MONOCYTE # 0.3 TH/MM3 (0-0.9); NEUT % 90.3 % (16.0-70.0); PLATELET COUNT 157 TH/MM3 (150-450); RED BLOOD COUNT 4.21 MIL/MM3 (4.00-5.30); RED CELL DISTRIBUTION WIDTH 12.6 % (11.6-17.2); WHITE BLOOD COUNT 18.6 TH/MM3 (4.0-11.0)
[2017-10-08 05:14] LABS: CALCIUM 8.3 MG/DL (8.5-10.1)
[2017-10-08 05:15] LABS: BICARBONATE 23.6 MEQ/L (21.0-32.0)
[2017-10-08 05:18] LABS: CREATININE 0.76 MG/DL (0.50-1.00)
[2017-10-08] MEDS: RESP: ALBUTEROL 2.5 MG/IPRATROPIUM 0.5 MG NEB (SCH) NEB ×3 (07:21→19:33)
[2017-10-08] MEDS: INSULIN ASPART SUPPLEMENTAL SCALE SQ SCH ×4 (08:07→21:39)
[2017-10-08] MEDS: SODIUM CHLOR 0.9% 1000 ML INJ 1,000 ML IV SCH ×2 (08:32→21:29)
[2017-10-08] MEDS: LOSARTAN 25 MG TAB PO SCH (08:32)
[2017-10-08] MEDS: AZITHROMYCIN 250 MG TAB PO SCH (08:32)
[2017-10-08] MEDS: methylPREDNISolone SOD SUCC 40 MG/1 ML VIAL IV PUSH SCH ×2 (08:33→16:38)
[2017-10-08] MEDS: prednisoLONE ACETATE 1% OPHT SUSP 5 ML BTL EACH EYE SCH (08:33)
[2017-10-08] MEDS: SODIUM CHLORIDE 0.9% FLUSH 10 ML FLUSH IV FLUSH SCH ×2 (08:34→21:29)
[2017-10-08] MEDS: BUDESONIDE-FORMOTEROL 160/4.5 MCG INHALER INH SCH ×2 (08:34→21:29)
--- NOTE | 2017-10-08 08:42 | HHI.PR ---
Subjective Remarks Follow-up asthma exacerbation, elevated troponin and elevated lactic acid and rhabdomyolysis. Patient seen and examined, sitting in wheelchair ready to go down to [facility] [employer] for [facility]. Patient states she still feels short of breath with exertion. Appears to be winded while sitting in the chair. Pulmonology saw patient yesterday, appreciate input recommendations. Vital signs also are stable overnight. Afebrile. Wheezing continued. CPK trending down. Objective Vitals Vital Signs Date Time Temp Pulse Resp B/P (MAP) Pulse Ox O2 Delivery O2 Flow Rate FiO2 10/08/17 07:50 96.8 75 18 162/79 (106) 98 10/08/17 07:22 97 21 10/08/17 04:00 96.4 68 20 136/76 (96) 97 10/08/17 00:00 96.6 74 20 138/74 (95) 96 10/07/17 20:05 98 21 10/07/17 20:00 96.5 74 20 121/67 (85) 96 10/07/17 16:24 98.2 75 18 150/75 (100) 98 10/07/17 13:30 97.4 77 18 143/75 (97) 97 10/07/17 09:18 73 10/07/17 08:53 97.3 87 16 158/78 (104) 97 I/O 10/07/17 10/07/17 10/07/17 10/08/17 10/08/17 10/08/17 07:00 15:00 23:00 07:00 15:00 23:00 Intake Total 1620 ml 1200 ml 0 ml 1000 ml Balance 1620 ml 1200 ml 0 ml 1000 ml Intake Oral 720 ml 1200 ml 0 ml IV Total 900 ml 1000 ml # Voids 3 3 3 # Bowel Movements 0 Result Diagram: 10/08/17 0430 10/08/17 0430 Imaging Last Impressions Chest CT 10/07/17 1926 Signed Impressions: CONCLUSION: 1. Nodule in the left lower lobe is obscured by minimal density, likely atelec tasis. 2. No infiltrate or mass. 3. Tiny nodule right upper lobe laterally is stable and benign Chest X-Ray 10/05/17 6744 Signed Impressions: CONCLUSION: Negative chest for acute disease Objective Remarks GENERAL: Well-developed, well-nourished patient in NAD. SKIN: Warm and dry. No rash. HEAD: Normocephalic. Atraumatic. EYES: Pupils equal and round. No scleral icterus. No injection or drainage. ENT: No nasal bleeding or discharge. Mucous membranes pink and moist. NECK: Supple. Trachea midline. CARDIOVASCULAR: Sinus tachycardia. S1, S2 noted. No murmur appreciated. RESPIRATORY: No accessory muscle use. Diffuse expiratory wheezing. Breath sounds equal bilaterally. GASTROINTESTINAL: Abdomen soft, non-tender, nondistended. Normoactive bowel sounds x4. MUSCULOSKELETAL: No obvious deformities. Extremities without clubbing, cyanosis , or edema. NEUROLOGICAL: Awake and alert. No obvious cranial nerve deficits. Motor grossly within normal limits. 5/5 muscle strength in bilateral upper and lower extremities. Normal speech. PSYCHIATRIC: Appropriate mood and affect; insight and judgment normal. A/P Problem List: (1) Asthma exacerbation ICD Code: J45.901 - Unspecified asthma with (acute) exacerbation Status: Acute Assessment and Plan This is a pleasant 82-year-old female patient with a known medical history of hypertension, hyperlipidemia, and asthma who presented to the ED with complaints of worsening nonproductive cough, shortness of breath and headache. Asthma exacerbation Lung nodule - Chest x-ray reviewed negative for any acute disease. - Was started on duo nebs as needed for shortness of breath/wheezing. Started on Atrovent. - Will continue cardiac telemetry, patient has been tachycardic. Likely secondary to steroids. Exacerbation. - Will continue IV steroids. Pulmonology increased to 40 mg IV 3 times daily. - Hyperglycemic suspect secondary to steroids. Accu-Chek while on steroids, cover with insulin as needed, tight blood sugar control. - Robitussin for cough as needed. - Supplemental O2 as needed, patient is comfortable on room air with adequate oxygen saturations. - PT evaluation, appreciate input and recommendations. - Consult placed to pulmonology, appreciate input recommendations. PFTs to be done today. Placed on Zithromax. Sputum culture. Added Symbicort. - CT scan was ordered to evaluate lung nodule. CT results showing nodule in the left lower lobe. No infiltrate or mass. Tiny nodule right upper lobe laterally stable benign. Hypokalemia: Status post replacement. Resolved. Acute kidney injury. Resolved. - Creatinine 0.73 on presentation. Overnight creatinine bumped to 1.3. Now 0.95. - Continue IV fluids. Rhabdomyolysis, mild Elevated troponin possibly suspect secondary to asthma exacerbation Elevated lactic acid - Lactic acid 7.5, 6.6, 3.3. Troponin 0.06, 0.07. CPK 809. Status post 1 L NS Bolus. Continue IVF. - CPK improving today. Follow. - Serial EKGs reviewed showing controlled heart rate with RBBB. No ST changes. - Will obtain echocardiogram, pending. - Patient underwent Lexiscan today, follow results. Hyperlipidemia, chronic: Will continue home statin. Hypertension, chronic: Will continue home medications. Monitor blood pressure trends. DVT prophylaxis: SCDs. Lovenox. Problem Qualifiers (1) Asthma exacerbation: Qualified Codes: J45.901 - Unspecified asthma with (acute) exacerbation Falguni Contreras Oct 08, 2017 08:42
[2017-10-08] MEDS ORDERED: REGADENOSON INJ 0.4 MG/5 ML SYR IV ONE (09:24)
--- NOTE | 2017-10-08 11:35 | RADRPT ---
EXAM DATE: 10/08/2017 10:07 AM EDT AGE/SEX: 82 years / Female INDICATIONS:Angina. Right bundle branch block Substernal chest pain. CLINICAL DATA: This is the patient's initial encounter. Patient reports that signs and symptoms have been present for 1 day and indicates a pain score of 3/10. MEDICAL/SURGICAL HISTORY: Hypertension. Thyroidectomy. Tonsillectomy. Pacemaker. COMPARISON: No prior exams available for comparison. DOSE: 8.5 mCi Tc 99m Myoview at rest 25.4 mCi [id number] at stress 0.4 mg Lexiscan STRESS SYMPTOMS: Weird feeling and dyspnea. EJECTION FRACTION: 65 % TECHNIQUE: The patient underwent pharmacologic stress with infusion of prescribed dose. Continuous ECG tracing was monitored during stress. Gated SPECT imaging was performed after stress and conventi onal SPECT imaging was performed at rest. The examination was performed on a SPECT /CT scanner, both attenuation and non-corrected datasets were reviewed. FINDINGS: Distribution: The maximum perfused segment at stress is in the anterior lateral wall wall. Perfusion Study: The pattern of perfusion at stress is within normal limits. Gated Study: There are intact wall motion and wall thickening without hypokinetic or dyskinetic segm ents. The ejection fraction is calculated at 65%. RISK CATEGORY: Low (<1% Annual Motality Rate) CONCLUSION: 1. Negative for stress-induced ischemia. Correlate with right bundle branch block Electronically signed by: Trell Ureña MD 10/08/2017 11:34 AM EDT
--- NOTE | 2017-10-08 12:04 | ECHRPT ---
Indication: CHEST PAIN CONCLUSIONS Normal left ventricular size. Mild concentric left ventricular hypertrophy. The left ventricular systolic function is normal with an estimated ejection fraction in the range of 55-60%. Mild aortic valve regurgitation. There is trace tricuspid valve regurgitation. The estimated pulmonary arterial pressure is 29.9 mmHg. BP: 136 / 76 HR: Rhythm: Sinus MEASUREMENTS (Male / Female) Normal Values Technical Quality:Fair 2D ECHO LV Diastolic Diameter PLAX 4.2 cm 4.2 - 5.9 / 3.9 - 5.3 cm LV Systolic Diameter PLAX 3.1 cm IVS Diastolic Thickness 1.2 cm 0.6 - 1.0 / 0.6 - 0.9 cm LVPW Diastolic Thickness 1.2 cm 0.6 - 1.0 / 0.6 - 0.9 cm LV Relative Wall Thickness 0.6 RV Internal Dim ED PLAX 2.5 cm LVOT Diameter 1.8 cm Aortic Root Diameter 3.0 cm LA Systolic Diameter LX 2.8 cm 3.0 - 4.0 / 2.7 - 3.8 cm M-MODE AV Cusp Separation MM 1.9 cm DOPPLER AV Peak Velocity 153.0 cm/s AV Peak Gradient 9.4 mmHg AV Mean Gradient 5.0 mmHg AV Velocity Time Integral 29.0 cm AI Peak Velocity 456.0 cm/s AI Peak Gradient 83.2 mmHg AI Pressure Half Time 592.0 ms LVOT Peak Velocity 110.0 cm/s LVOT Peak Gradient 4.8 mmHg LVOT Velocity Time Integral 19.8 cm AV Area Cont Eq vti 1.7 cm AV Area Cont Eq pk 1.8 cm Mitral E Point Velocity 84.4 cm/s LV E' Lateral Velocity 7.1 cm/s Mitral E to LV E' Lateral Ratio 11.9 LV E' Septal Velocity 5.9 cm/s Mitral E to LV E' Septal Ratio 14.4 TR Peak Velocity 223.0 cm/s TR Peak Gradient 19.9 mmHg Right Atrial Pressure 10.0 mmHg Pulmonary Artery Systolic Pressu 29.9 mmHg Right Ventricular Systolic Press 29.9 mmHg PV Peak Velocity 79.0 cm/s PV Peak Gradient 2.5 mmHg FINDINGS LEFT VENTRICLE Normal left ventricular size. Mild concentric left ventricular hypertrophy. The left ventricular systolic function is normal with an estimated ejection fraction in the range of 55-60%. RIGHT VENTRICLE Normal right ventricular size and systolic function. LEFT ATRIUM The left atrial size is normal. RIGHT ATRIUM The right atrial size is normal. ATRIAL SEPTUM No atrial level shunt is demonstrated by color flow Doppler interrogation. AORTA The aortic root and proximal ascending aorta are normal in size on limited imaging. MITRAL VALVE Structurally normal mitral valve. No mitral valve stenosis or regurgitation. AORTIC VALVE Mild aortic valve regurgitation. TRICUSPID VALVE There is trace tricuspid valve regurgitation. The estimated pulmonary arterial pressure is 29.9 mmHg. PULMONARY VALVE No pulmonary valve regurgitation or stenosis. VESSELS The inferior vena cava is normal in size. PERICARDIUM No pericardial effusion. You Montalvo MD, FACC (Electronically Signed) Final Date:08 October 2017 12:03
--- NOTE | 2017-10-08 12:51 | TR ---
Date Performed: 10/08/2017 Time Performed: 09:15:38 DOCTOR: Nela Rodriguez DRUG LIST: CLINICAL HISTORY: CHEST PAIN REASON FOR TEST: Chest pain REASON FOR ENDING: OBSERVATION: CONCLUSION: Lexiscan stress test was performed under standard four minute protocol. Radionuclid e was injected one minute prior to ending the test. No electrocardiographic abormalities were present to suggest ischemia. Nuclear imaging and interpretation are pending. COMMENTS: no ischemia
--- NOTE | 2017-10-08 19:20 | HHI.PR ---
Subjective Remarks She was more congested today. Coughs a little. No fever.On IV fluids. CT showed bilateral lung nodules. Objective Vital Signs Date Time Temp Pulse Resp B/P (MAP) Pulse Ox O2 Delivery O2 Flow Rate FiO2 10/08/17 15:15 97.0 92 18 124/70 (88) 96 10/08/17 11:38 96.4 80 18 139/76 (97) 99 10/08/17 08:00 84 10/08/17 07:50 96.8 75 18 162/79 (106) 98 10/08/17 07:22 97 21 10/08/17 04:00 96.4 68 20 136/76 (96) 97 10/08/17 00:00 96.6 74 20 138/74 (95) 96 10/07/17 20:05 98 21 10/07/17 20:00 96.5 74 20 121/67 (85) 96 I/O 10/07/17 10/07/17 10/07/17 10/08/17 10/08/17 10/08/17 07:00 15:00 23:00 07:00 15:00 23:00 Intake Total 1620 ml 1200 ml 0 ml 1000 ml 600 ml Balance 1620 ml 1200 ml 0 ml 1000 ml 600 ml Intake Oral 720 ml 1200 ml 0 ml 600 ml IV Total 900 ml 1000 ml # Voids 3 3 3 4 # Bowel Movements 0 0 Result Diagram: 10/08/17 0430 10/08/17 0430 Objective Remarks GENERAL: This is an averagely, elderly lady who is in mild distress. No pallor. No clubbing or peripheral edema. HEENT: Head is normocephalic. Pupils are reactive and equal. Tongue is moist. Throat is injected. Nasal mucosa is clear. NECK: Supple without venous distention. No thyromegaly or lymphadenopathy. CHEST: Equal movements with an increased AP diameter. Percussion note resonant throughout. Diffuse wheezes throughout both lung ferrera, prolonged expirations. HEART: The heart sounds were regular, S1 and S2 with no murmur. ABDOMEN: Soft, protuberant without masses. No organomegaly or tenderness. EXTREMITIES: No lesions. Peripheral pulses are diminished. NEUROLOGIC: Reflexes are 1+ with no gross motor deficits. Cranial nerves grossly intact. Assessment and Plan Assessment and Plan GENERAL: This is an averagely, elderly lady who is in no acute distress. No pallor. No clubbing or peripheral edema. IMPRESSION: 1. Asthmatic bronchitis. 2. Chronic obstructive pulmonary disease. 3. Bilateral Lung nodules. 4. History of hypertension. Plan : 1. Continue Antibiotic. 2. Solumedrol 40 mg IV q8h. 3. Continue Duonebs qid. 4. Add Theodur 200 mg daily. 5. singulair 10 mg at HS 6. CBC,BMP Yosi level 7. taper steroids in am 8. Reduce IV Fluids to 30 CC. Lynn Perrin MD Oct 08, 2017 19:20
--- NOTE | 2017-10-08 19:48 | RADRPT ---
EXAM DATE: 10/08/2017 7:38 PM EDT AGE/SEX: 82 years / Female INDICATIONS: Cough and edema. CLINICAL DATA: This is the patient's subsequent encounter. Patient reports that signs and symptoms h ave been present for 4 - 6 days and indicates a pain score of 0/10. MEDICAL/SURGICAL HISTORY: Hypertension. . Thyroidectomy. Tonsillectomy. Pacemaker COMPARISON: [facility], CHEST SINGLE AP, 10/05/2017. . FINDINGS: Minimal linear atelectasis or scarring left lung base. Trace pleural fluid. Heart size within normal limits. Tortuous aorta. Pacer leads in right atrium and right ventricle. CONCLUSION: Linear atelectasis left lung base with trace pleural fluid. No pneumothorax. Electronically signed by: Augusto Ellison MD 10/08/2017 7:47 PM EDT
[2017-10-08] MEDS: ATORVASTATIN 40 MG TAB PO SCH (21:30)
[2017-10-08] MEDS: ENOXAPARIN SODIUM 40 MG/0.4 ML SYRINGE SQ SCH (21:30)
[2017-10-08] MEDS: MONTELUKAST SODIUM 10 MG TAB PO SCH (21:30)
[2017-10-09] VITALS (9 sets, daily range): BP systolic 131–184; BP diastolic 68–89; PULSE 72–85; RESP 18–20; TEMP 96.7–97.6; O2SAT 94–97
[2017-10-09] MEDS: methylPREDNISolone SOD SUCC 40 MG/1 ML VIAL IV PUSH SCH ×3 (00:59→17:32)
[2017-10-09] MEDS: RESP: ALBUTEROL 2.5 MG/IPRATROPIUM 0.5 MG NEB (SCH) NEB ×3 (08:06→19:26)
[2017-10-09] MEDS: LOSARTAN 25 MG TAB PO SCH (08:08)
[2017-10-09] MEDS: INSULIN ASPART SUPPLEMENTAL SCALE SQ SCH ×4 (08:08→20:00)
[2017-10-09] MEDS: prednisoLONE ACETATE 1% OPHT SUSP 5 ML BTL EACH EYE SCH (08:09)
[2017-10-09] MEDS: AZITHROMYCIN 250 MG TAB PO SCH (08:09)
[2017-10-09] MEDS: BUDESONIDE-FORMOTEROL 160/4.5 MCG INHALER INH SCH ×2 (08:09→19:58)
[2017-10-09] MEDS: SODIUM CHLORIDE 0.9% FLUSH 10 ML FLUSH IV FLUSH SCH ×2 (08:10→19:59)
[2017-10-09] MEDS ORDERED: SENNOSIDES 8.6 MG TAB PO PRN (08:30)
[2017-10-09] MEDS ORDERED: BISACODYL 10 MG SUPP RECTAL PRN (08:30)
[2017-10-09] MEDS ORDERED: LACTULOSE SYRUP 20 GM/30 ML CUP PO PRN (08:30)
[2017-10-09] MEDS ORDERED: MAGNESIUM HYDROXIDE SUSP 30 ML CUP PO PRN (08:30)
[2017-10-09] MEDS ORDERED: THEOPHYLLINE 200 MG EXTENDED RELEASE CAP PO SCH (09:00)
--- NOTE | 2017-10-09 09:00 | HHI.PR ---
Subjective Remarks Follow-up asthma exacerbation and elevated troponin. Patient seen and examined , sitting in chair comfortably with mild dyspnea. Patient states that she does still feel short of breath with exertion but this has improved. Patient denies any chest pain. Has been tolerating p.o. intake well with no abdominal pain, nausea vomiting. Labs improving this morning. Vital signs stable. Afebrile. Spoke to traffic sign supervisor, will see later today, waiting for clinical improvement and improvement in wheezing for discharge. Objective Vitals Vital Signs Date Time Temp Pulse Resp B/P (MAP) Pulse Ox O2 Delivery O2 Flow Rate FiO2 10/09/17 08:08 96 10/09/17 07:21 97.6 77 20 165/81 (109) 94 10/09/17 04:00 96.7 72 20 131/72 (91) 95 10/09/17 00:00 97.3 80 20 131/68 (89) 95 10/08/17 20:00 101 10/08/17 20:00 97.3 103 20 151/75 (100) 95 10/08/17 19:35 94 21 10/08/17 15:15 97.0 92 18 124/70 (88) 96 10/08/17 11:38 96.4 80 18 139/76 (97) 99 I/O 10/08/17 10/08/17 10/08/17 10/09/17 10/09/17 10/09/17 07:00 15:00 23:00 07:00 15:00 23:00 Intake Total 0 ml 1000 ml 600 ml 352 ml Balance 0 ml 1000 ml 600 ml 352 ml Intake Oral 0 ml 600 ml IV Total 1000 ml 352 ml # Voids 3 4 # Bowel Movements 0 Result Diagram: 10/08/17 0430 10/08/17 0430 Imaging Last Impressions Myocardial Perfusion Scan Nuc Med 10/08/17 0000 Signed Impressions: CONCLUSION: 1. Negative for stress-induced ischemia. Correlate with right bundle branch bl ock Chest X-Ray 10/08/17 0000 Signed Impressions: CONCLUSION: Linear atelectasis left lung base with trace pleural fluid. No pneumothorax. Chest CT 10/07/17 192 Signed Impressions: CONCLUSION: 1. Nodule in the left lower lobe is obscured by minimal density, likely atelec tasis. 2. No infiltrate or mass. 3. Tiny nodule right upper lobe laterally is stable and benign Objective Remarks GENERAL: Well-developed, well-nourished patient in NAD. SKIN: Warm and dry. No rash. HEAD: Normocephalic. Atraumatic. EYES: Pupils equal and round. No scleral icterus. No injection or drainage. ENT: No nasal bleeding or discharge. Mucous membranes pink and moist. NECK: Supple. Trachea midline. CARDIOVASCULAR: Sinus tachycardia. S1, S2 noted. No murmur appreciated. RESPIRATORY: No accessory muscle use. Left posterior lung field expiratory wheezing noted. Breath sounds equal bilaterally. GASTROINTESTINAL: Abdomen soft, non-tender, nondistended. Normoactive bowel sounds x4. MUSCULOSKELETAL: No obvious deformities. Extremities without clubbing, cyanosis , or edema. NEUROLOGICAL: Awake and alert. No obvious cranial nerve deficits. Motor grossly within normal limits. 5/5 muscle strength in bilateral upper and lower extremities. Normal speech. PSYCHIATRIC: Appropriate mood and affect; insight and judgment normal. A/P Problem List: (1) Asthma exacerbation ICD Code: J45.901 - Unspecified asthma with (acute) exacerbation Status: Acute Assessment and Plan This is a pleasant 82-year-old female patient with a known medical history of hypertension, hyperlipidemia, and asthma who presented to the ED with complaints of worsening nonproductive cough, shortness of breath and headache. Asthma exacerbation Bilateral lung nodules - Chest x-ray reviewed negative for any acute disease. - Was started on duo nebs as needed for shortness of breath/wheezing. Started on Atrovent. Added theophylline. Added Symbicort. - Will continue cardiac telemetry, patient has been tachycardic. Likely secondary to steroids. Exacerbation. - Will continue IV steroids. Pulmonology increased to 40 mg IV 3 times daily. Will wean as tolerated. - Hyperglycemic suspect secondary to steroids. Accu-Chek while on steroids, cover with insulin as needed, tight blood sugar control. - Robitussin for cough as needed. - Supplemental O2 as needed, patient is comfortable on room air with adequate oxygen saturations. - PT evaluation, appreciate input and recommendations. - Consult placed to pulmonology, appreciate input recommendations. PFTs at bedside. Placed on Zithromax. Will continue. Sputum culture. - CT scan was ordered to evaluate lung nodule. CT results showing nodule in the left lower lobe. No infiltrate or mass. Tiny nodule right upper lobe laterally stable benign. - Per pulmonology, patient can follow-up outpatient for bilateral lung nodules. Hypokalemia: Status post replacement. Resolved. Acute kidney injury. Resolved. - Creatinine 0.73 on presentation. Overnight creatinine bumped to 1.3. Now 0.95. - Continue IV fluids. Rhabdomyolysis, mild Elevated troponin possibly suspect secondary to asthma exacerbation Elevated lactic acid - Lactic acid 7.5, 6.6, 3.3. Troponin 0.06, 0.07. CPK 809. Status post 1 L NS Bolus. Will DC IV fluid, tolerating p.o. intake well. - CPK improving today. - Serial EKGs reviewed showing controlled heart rate with RBBB. No ST changes. - Echocardiogram done, adequate EF. - Patient underwent Lexiscan today, unremarkable study. Chest pain resolved. Hyperlipidemia, chronic: Will continue home statin. Hypertension, chronic: Will continue home medications. Monitor blood pressure trends. DVT prophylaxis: SCDs. Lovenox. Problem Qualifiers (1) Asthma exacerbation: Qualified Codes: J45.901 - Unspecified asthma with (acute) exacerbation Falguni Contreras Oct 09, 2017 09:00
[2017-10-09] MEDS: DOCUSATE SODIUM 50 MG/SENNA 8.6 MG TAB PO SCH ×2 (09:16→20:00)
[2017-10-09] MEDS ORDERED: cloNIDine HCL 0.1 MG TAB PO PRN (11:45)
--- NOTE | 2017-10-09 18:18 | HHI.PR ---
Subjective Remarks She is less congested today. Has some wheezing No fever. CT showed bilateral lung nodules.These are small and need F/U in 3 to 6 mths Objective Vital Signs Date Time Temp Pulse Resp B/P (MAP) Pulse Ox O2 Delivery O2 Flow Rate FiO2 10/09/17 15:04 97.0 72 20 140/72 (94) 96 10/09/17 13:13 155/74 (101) 10/09/17 11:04 97.1 85 20 184/89 (120) 97 10/09/17 08:08 96 10/09/17 07:21 97.6 77 20 165/81 (109) 94 10/09/17 04:00 96.7 72 20 131/72 (91) 95 10/09/17 00:00 97.3 80 20 131/68 (89) 95 10/08/17 20:00 101 10/08/17 20:00 97.3 103 20 151/75 (100) 95 10/08/17 19:35 94 21 I/O 10/08/17 10/08/17 10/08/17 10/09/17 10/09/17 10/09/17 07:00 15:00 23:00 07:00 15:00 23:00 Intake Total 0 ml 1000 ml 600 ml 352 ml 240 ml 1080 ml Balance 0 ml 1000 ml 600 ml 352 ml 240 ml 1080 ml Intake Oral 0 ml 600 ml 240 ml 1080 ml IV Total 1000 ml 352 ml # Voids 3 4 2 5 # Bowel Movements 0 0 Result Diagram: 10/08/17 0430 10/08/17 0430 Objective Remarks GENERAL: This is an averagely, elderly lady who is in no distress. No pallor. No clubbing or peripheral edema. HEENT: Head is normocephalic. Pupils are reactive and equal. Tongue is moist. Throat is injected. Nasal mucosa is clear. NECK: Supple without venous distention. No thyromegaly or lymphadenopathy. CHEST: Equal movements with an increased AP diameter. Diffuse wheezes throughout both lung ferrera, prolonged expirations. HEART: The heart sounds were regular, S1 and S2 with no murmur. ABDOMEN: Soft, protuberant without masses. No organomegaly or tenderness. EXTREMITIES: No lesions. Peripheral pulses are diminished. NEUROLOGIC: Reflexes are 1+ with no gross motor deficits. Cranial nerves grossly intact. Assessment and Plan Assessment and Plan IMPRESSION: 1. Asthmatic bronchitis. 2. Chronic obstructive pulmonary disease. 3. Bilateral Lung nodules. 4. History of hypertension. Plan : 1. Continue Antibiotic.for 5 days 2. Solumedrol 40 mg IV q8h and switch to Prednisone 20 mg bid in am 3. Continue Duonebs qid. 4. Theodur 200 mg daily. 5. singulair 10 mg at HS 6. Will need F/U CT chest in 3 mths. 7. Home in am if stable and I will F/U as OP in 2 weeks Lynn Perrin MD Oct 09, 2017 18:18
[2017-10-09] MEDS: ENOXAPARIN SODIUM 40 MG/0.4 ML SYRINGE SQ SCH (19:59)
[2017-10-09] MEDS: MONTELUKAST SODIUM 10 MG TAB PO SCH (19:59)
[2017-10-09] MEDS: ATORVASTATIN 40 MG TAB PO SCH (19:59)
[2017-10-10] VITALS: BP_SYST 131; BP_SYST 153; BP_DIAS 89; PULSE 73; PULSE 97; RESP 15; RESP 20; TEMP 101.7; TEMP 96.7; O2SAT 95; O2SAT 97
[2017-10-10] MEDS: methylPREDNISolone SOD SUCC 40 MG/1 ML VIAL IV PUSH SCH (00:59)
[2017-10-10 04:00] VITALS: BP 169/97; PULSE 76; RESP 20; TEMP 97; O2SAT 97
[2017-10-10] MEDS ORDERED: THEO1CAP2 PO (07:06)
[2017-10-10] MEDS ORDERED: MONT10TA4 PO (07:06)
[2017-10-10] MEDS ORDERED: Budeson-Formot 160-4.5 Mcg Inh INH (07:06)
[2017-10-10] MEDS ORDERED: PRED20 PO (07:06)
[2017-10-10] MEDS ORDERED: AZIT250T3 PO (07:06)
[2017-10-10] MEDS ORDERED: DEXT10SY2 PO (07:06)
--- NOTE | 2017-10-10 07:06 | HHI.DS ---
Discharge Summary Admission Date Oct 07, 2017 at 12:19 Discharge Date: Oct 10, 2017 Admitting Diagnosis Asthma exacerbation (1) Asthma exacerbation ICD Code: J45.901 - Unspecified asthma with (acute) exacerbation Status: Acute Procedures See below. Brief History - From Admission This is a pleasant 82-year-old female patient with a known medical history of hypertension, hyperlipidemia, and asthma who presented to the ED with complaints of worsening nonproductive cough, shortness of breath and headache. Patient states that she went to the urgent care yesterday due to audible wheezing and worsening shortness of breath. Patient states that the urgent care sent her over to the emergency department. Patient states that her symptoms started roughly around Wednesday and had noticed she was using her rescue inhaler more often than normal up to 3 times per day. Patient actually saw her PCP on Wednesday for checkup and blood work which were reportedly unremarkable. She does state that she follows with the speedboat driver but does not remember the name. She also follows with a rocket motor tester for management of her pacemaker. Patient denies any recent illness including fever, chills, abdominal pain, nausea, vomiting, diarrhea or dysuria. She does admit to a mild headache associated with her cough and shortness of breath. She does admit to overall fatigue despite adequate appetite and sleeping well. PCP is Dr. Suresh. CBC/BMP: 10/08/17 0430 10/08/17 0430 Significant Findings Laboratory Tests Test 10/07/17 10:50 10/08/17 04:30 10/09/17 06:28 Total Creatine Kinase 809 U/L (26-192) 413 U/L (26-192) 208 U/L (26-192) Creatine Kinase MB 12.4 NG/ML (0.5-3.6) 8.1 NG/ML (0.5-3.6) 5.4 NG/ML (0.5-3.6) Troponin I 0.07 NG/ML (0.02-0.05) White Blood Count 18.6 TH/MM3 (4.0-11.0) Neutrophils (%) (Auto) 90.3 % (16.0-70.0) Lymphocytes (%) (Auto) 6.5 % (9.0-44.0) Neutrophils # (Auto) 16.8 TH/MM3 (1.8-7.7) Basophils # (Auto) 0.3 TH/MM3 (0-0.2) Blood Urea Nitrogen 26 MG/DL (7-18) Random Glucose 183 MG/DL (74-106) Calcium Level 8.3 MG/DL (8.5-10.1) Chloride Level 113 MEQ/L (98-107) Estimat Glomerular Filtration Rate 73 ML/MIN (>89) Imaging Last Impressions Myocardial Perfusion Scan Nuc Med 10/08/17 0000 Signed Impressions: CONCLUSION: 1. Negative for stress-induced ischemia. Correlate with right bundle branch bl ock Chest X-Ray 10/08/17 0000 Signed Impressions: CONCLUSION: Linear atelectasis left lung base with trace pleural fluid. No pneumothorax. Chest CT 10/07/17 192 Signed Impressions: CONCLUSION: 1. Nodule in the left lower lobe is obscured by minimal density, likely atelec tasis. 2. No infiltrate or mass. 3. Tiny nodule right upper lobe laterally is stable and benign PE at Discharge GENERAL: Well-developed, well-nourished patient in NAD. SKIN: Warm and dry. No rash. HEAD: Normocephalic. Atraumatic. EYES: Pupils equal and round. No scleral icterus. No injection or drainage. ENT: No nasal bleeding or discharge. Mucous membranes pink and moist. NECK: Supple. Trachea midline. CARDIOVASCULAR: Sinus tachycardia. S1, S2 noted. No murmur appreciated. RESPIRATORY: No accessory muscle use. Left posterior lung field expiratory wheezing noted. Breath sounds equal bilaterally. GASTROINTESTINAL: Abdomen soft, non-tender, nondistended. Normoactive bowel sounds x4. MUSCULOSKELETAL: No obvious deformities. Extremities without clubbing, cyanosis , or edema. NEUROLOGICAL: Awake and alert. No obvious cranial nerve deficits. Motor grossly within normal limits. 5/5 muscle strength in bilateral upper and lower extremities. Normal speech. PSYCHIATRIC: Appropriate mood and affect; insight and judgment normal. Pt update on day of discharge Follow-up asthma exacerbation. Patient seen and examined, sitting up in chair bathed and doing well this morning. Symptoms have resolved, patient denies any further shortness of breath. Still mild left posterior expiratory wheezing in lower lobe. Continued on antibiotics and steroids upon discharge. Vital signs stable. Hospital Course This is a pleasant 82-year-old female patient with a known medical history of hypertension, hyperlipidemia, and asthma who presented to the ED with complaints of worsening nonproductive cough, shortness of breath and headache. Patient was admitted for asthma exacerbation and subsequently found bilateral lung nodules on imaging. Chest x-ray reviewed negative for any acute disease although pulmonary reviewed imaging ordered a CT scan of the chest. CT results showing nodule in the left lower lobe. No infiltrate or mass. Tiny nodule right upper lobe laterally stable benign. Per pulmonology, patient can follow- up outpatient for bilateral lung nodules and repeat CT scan in 3-6 months. PFTs were done at bedside. Patient to follow-up with pulmonology in 2 weeks. Patient given Zithromax during hospitalization, will continue to completion as well as steroid dose taper. Patient required supplemental O2 initially on presentation, this was weaned to room air with patient having adequate oxygen saturations. Patient was placed on IV steroids during hospitalization and these were tapered and continued upon discharge. Patient was started on Atrovent as well as theophylline and Symbicort. Patient did have hypokalemia upon presentation this was replaced. As well as acute kidney injury with creatinine 1.3, this resolved with fluids. Overnight during beginning of hospitalization patient did have mild rhabdomyolysis with elevated CPK. A lactic acid was drawn and initially 7.5, this trended down over time and after IV fluids. Patient also had an elevated troponin 0.07. These were trended and serial EKGs done showing sinus rhythm with right bundle jairo block. Patient did undergo a Lexiscan to further rule out any ischemia which was unremarkable. An echocardiogram was performed during hospitalization showing adequate EF. Hypertension hyperlipidemia are stable during hospitalization. Patient to follow-up with PCP and pulmonology for management of asthma as well as chronic diseases. Pt Condition on Discharge: Stable Discharge Disposition: Discharge Home Discharge Time: > 30 minutes Discharge Instructions DIET: Follow Instructions for: Heart Healthy Diet Speech Therapy-Diet Recommends: Regular Activities you can perform: Regular-No Restrictions Follow up Referrals: PCP Follow-up - 1 Week Pulmonology - 2 Weeks New Medications: Prednisone (Prednisone) 20 Mg Tab 20 MG PO DAILY for Asthma Management for 4 Days, #4 TAB 0 Refills Azithromycin (Azithromycin) 250 Mg Tab 500 MG PO DAILY for infection for 3 Days, #6 TAB Dextromethorphan-Guaifenesin (Dextromethorphan/Guaifene 10-100 mg/5Ml) 100 Mg- 10 Mg/5 Ml Syp 10 ML PO Q6H PRN for cough for 5 Days, #200 ML Montelukast (Montelukast) 10 Mg Tab 10 MG PO HS for asthma for 30 Days, #30 TAB Theophylline ER 24 HR (Yosi-24) 200 Mg Cap 200 MG PO DAILY for Asthma Management for 30 Days, #30 CAP [Budeson-Formot 160-4.5 Mcg Inh] () 60 PUFF AERO 2 PUFF INH Q12HR for Asthma Management for 30 Days, #1 INH Continued Medications: Atorvastatin (Atorvastatin) 40 Mg Tab 40 MG PO HS for Cholesterol Management, #30 TAB 0 Refills Losartan (Losartan) 25 Mg Tab 25 MG PO DAILY for Blood Pressure Management, #30 TAB 0 Refills Prednisolone Acetate Opth 1% (Pred Forte Opth 1%) 1% Susp 1 DROP EACH EYE DAILY for Inflammation, #1 BOTTLE 0 Refills [AnuityIH powder] () 100 MG Falguni Contreras Oct 10, 2017 07:06
--- NOTE | 2017-10-10 07:06 | HHI.DCPOC ---
Discharge Care Plan Diagnosis: (1) Asthma exacerbation Goals to Promote Your Health * To prevent worsening of your condition and complications * To maintain your health at the optimal level Directions to Meet Your Goals Take your medications as prescribed Follow your dietary instruction Follow activity as directed Keep your appointments as scheduled Take your immunizations and boosters as scheduled If your symptoms worsen call your PCP, if no PCP go to Urgent Care Center or Emergency Room Smoking is Dangerous to Your Health. Avoid second hand smoke Call the 24-hour hour crisis hotline for domestic abuse at Falguni Contreras Oct 10, 2017 07:06
[2017-10-10 07:28] VITALS: BP 177/95; PULSE 73; RESP 20; TEMP 96.5; O2SAT 95
[2017-10-10] MEDS: RESP: ALBUTEROL 2.5 MG/IPRATROPIUM 0.5 MG NEB (SCH) NEB (07:47)
[2017-10-10 07:48] VITALS: O2SAT 96
[2017-10-10] MEDS: INSULIN ASPART SUPPLEMENTAL SCALE SQ SCH (08:01)
[2017-10-10] MEDS ORDERED: MECL-62 PO (22:54)
== END 2017-10-10 08:53 | disposition home or self-care (01) | DRG 202 ==
LOC: PHED 16:45 → PHEDA 19:11 → PH3B 20:17 → OBSVTOIN 10-07 12:19
PROVIDERS: ADMIT Hospitalist; ATTEND Hospitalist
DX: J45.901 Unspecified asthma with (acute) exacerbation (principal); N17.9 Acute kidney failure, unspecified; M62.82 Rhabdomyolysis; J44.9 Chronic obstructive pulmonary disease, unspecified; R91.8 Other nonspecific abnormal finding of lung field; E87.6 Hypokalemia; I10 Essential (primary) hypertension; E78.5 Hyperlipidemia, unspecified; Z95.0 Presence of cardiac pacemaker; Z88.1 Allergy status to other antibiotic agents; Z88.8 Allergy status to other drugs, medicaments and biological substances
CPT/HCPCS: 36600; 71045; 71250; 78452; 80048; 80053; 80307; 81001; 82140; 82550; 82552; 82805; 82948; 83605; 84484; 85025; 87040; 93005; 93017; 93306; 94060; 94640; 94664; A9502; G8987-GP; G8988-GP; J1650; J1815; J2785; J2920; J2930; J7030; J7613; J7644

== ENCOUNTER 2017-10-10 20:55 | Emergency (ER) | payer MEDICARE ==
[~2017-10-10 20:55] MED LIST changes: -ANTI2TAB PO; -ATOR40TA PO; +ATOR40TA16 PO; +AZIT250T3 PO; +Budeson-Formot 160-4.5 Mcg Inh INH; +DEXT10SY2 PO; +LOSA25TA PO; -LOSA25TA31 PO; +MONT10TA4 PO; -NAPR220T95 PO; +PRED1SUS EACH EYE; +PRED20 PO; +THEO1CAP2 PO; -ZOFR4TAB3 PO; +[UNRECOGNIZED DRUG - OTHER]
[2017-10-10 20:58] VITALS: BP 215/111; PULSE 88; RESP 20; TEMP 98.5; O2SAT 96
[2017-10-10 21:30] VITALS: BP 165/99; PULSE 78; RESP 20; O2SAT 95
[2017-10-10] MEDS ORDERED: MECLIZINE HCL 25 MG TAB PO ONE (21:30)
[2017-10-10] MEDS ORDERED: RESP: IPRATROPIUM 0.5 MG/2.5 ML NEB NEB ONE (21:30)
[2017-10-10] MEDS ORDERED: DIAZEPAM 5 MG TAB PO ONE (21:30)
--- NOTE | 2017-10-10 21:35 | PD ---
HPI Chief Complaint: Hypertension Time Seen by Provider: 21:20 Travel History International Travel<30 days: No Contact w/Intl Traveler<30days: No Traveled to known affect area: No History of Present Illness HPI patient is an 82 year old female with a history of asthma, HTN, released from the hospital 2 days ago after an asthma exacerbation returns to the ER for evaluation dizziness and right sided facical pain. When i ask if she's had these symptoms before she states that she had the same symptoms which caused her to be admitted to the hospital. She states she was also SOB then and is somewhat SOB now. She took her BP prior to arrival and found it to be elevated and that's why she came in. She states when she was here prior to admission she had the same SOB, dizziness/vertigo and right sided facial pain. Patient states she had a vertigo episode some years ago and thinks that might be part of her problem. Patient was admitted for four days for her SOB, started on theophylline, inhalers, and azithromycin. Pulmonary nodule found on chest CT, likely benign per records. Patient also had negative nuclear stress test. She states she did not have her night time BP med but she does not know the name of it. Of the new medications she was prescribed the pharmacy did not have one. She does not know the name of the medication that the pharmacy didn't have. PFSH Past Medical History Arthritis: Yes Autoimmune Disease: No Anxiety: No Depression: No Heart Rhythm Problems: Yes (hilda) Cancer: No Cardiovascular Problems: Yes (htn on meds) High Cholesterol: Yes Diabetes: No Diminished Hearing: No Genitourinary: No Neurologic: No Reproductive: No Respiratory: Yes (ASTHMA) Thyroid Disease: Yes (2007 rt thyroid remove) Tetanus Vaccination: > 5 Years Influenza Vaccination: No ?: Not Menopausal: Yes Past Surgical History Cardiac Surgery: Yes (pacemaker ) Pacemaker: Yes ([employer] placed 2012) Tonsillectomy: Yes Other Surgery: Yes (thyroid -goiter removed - varicose veins -vein stripping) Social History Alcohol Use: Yes (occas. beer) Tobacco Use: No (40 yrs ago approx 1 ppd cigs) Substance Use: No Allergies-Medications (Allergen,Severity, Reaction): Coded Allergies: doxycycline (Verified Allergy, Intermediate, dizzy, 10/10/17) aspirin (Unverified Allergy, Mild, DIZZY, 10/10/17) Reported Meds & Prescriptions Reported Meds & Active Scripts Active Meclizine (Meclizine HCl) 25 Mg Tab 25 Mg PO TID PRN Prednisone 20 Mg Tab 20 Mg PO DAILY 4 Days Yosi-24 (Theophylline) 200 Mg Cap 200 Mg PO DAILY 30 Days Montelukast (Montelukast Sodium) 10 Mg Tab 10 Mg PO HS 30 Days [Budeson-Formot 160-4.5 Mcg Inh] 60 PUFF Aero 2 Puff INH Q12HR 30 Days Dextromethorphan/Guaifene 10-100 mg/5Ml (Dextromethorphan-Guaifenesin) 100 Mg- 10 Mg/5 Ml Syp 10 Ml PO Q6H PRN 5 Days Azithromycin 250 Mg Tab 500 Mg PO DAILY 3 Days Reported Pred Forte Opth 1% (Prednisolone Acetate Opth 1%) 1% Susp 1 Drop EACH EYE DAILY [AnuityIH powder] 100 Mg Losartan (Losartan Potassium) 25 Mg Tab 25 Mg PO DAILY Atorvastatin (Atorvastatin Calcium) 40 Mg Tab 40 Mg PO HS Review of Systems Except as stated in HPI: all other systems reviewed are Neg Physical Exam Narrative GENERAL: WD/WN pleasant elderly female in nad. SKIN: Warm and dry. HEAD: Atraumatic. Normocephalic. EYES: Pupils equal and round. No scleral icterus. No injection or drainage. ENT: No nasal bleeding or discharge. Mucous membranes pink and moist. NECK: Trachea midline. No JVD. CARDIOVASCULAR: Regular rate and rhythm. RESPIRATORY: No accessory muscle use. Clear to auscultation, no w/r/r. Breath sounds equal bilaterally. GASTROINTESTINAL: Abdomen soft, non-tender, nondistended. Hepatic and splenic margins not palpable. MUSCULOSKELETAL: Extremities without clubbing, cyanosis, or edema. No obvious deformities. NEUROLOGICAL: Awake and alert. CN 2-12 intact and non-focal. Cerebellar testing with [id number] normal. Ambualtes with an even narrow based gait. No nystagmus. 5/5 strength in all four extremities. PSYCHIATRIC: Appropriate mood and affect; insight and judgment normal. Data Data Last Documented VS Vital Signs Date Time Temp Pulse Resp B/P (MAP) Pulse Ox O2 Delivery O2 Flow Rate FiO2 10/10/17 23:41 74 20 155/95 (115) 96 10/10/17 22:22 Room Air 10/10/17 20:58 98.5 Orders Orders Ipratropium Neb (Atrovent Neb) (10/10/17 21:30) Diazepam (Valium) (10/10/17 21:30) Meclizine (Antivert) (10/10/17 21:30) Ed Discharge Order (10/10/17 22:55) [facility] Medical Decision Making Medical Screen Exam Complete: Yes Emergency Medical Condition: Yes Differential Diagnosis Vertigo, cerebellar stroke highly unlikely, pneumonia (though patient already being treated for this), facial pain, trigeminal neuralgia. Narrative Course Patient roomed in the ER, she appears quite well. BP elevated, responded well to rest, valium. She c/o minimal SOB, ipratropium given as patient's daughter states patient allergic to albuterol (though shes had it recently). Patient symptoms resolving with valium and meclizine. No indication for further workup in this patient with recent negative workup inpatient. She is stable for discharge and follow up with PCP. Diagnosis Primary Impression: Dizziness Additional Impression: Elevated blood pressure reading Additional Instructions: Follow up with your regular physician this week. Take your blood pressure twice a day and record the numbers. Before you take your blood pressure sit down and dont do anything for 5 minutes. You are always welcome to return to the ER anytime you think you have an emergency. Med/Other Pt SpecificInfo: Prescription(s) given Scripts Meclizine (Meclizine) 25 Mg Tab 25 MG PO TID Y for VERTIGO, #20 TAB 0 Refills Prov: Neo Farooq MD 10/10/17 Disposition: 01 DISCHARGE HOME Condition: Stable Neo Farooq MD Oct 10, 2017 21:35
[2017-10-10 22:22] VITALS: BP 169/105; PULSE 77; RESP 20; O2SAT 98
[2017-10-10] MEDS ORDERED: MECL-62 PO (22:54)
[2017-10-10 23:41] VITALS: BP 155/95
== END 2017-10-10 23:44 | disposition home or self-care (01) ==
LOC: PHED 20:55
DX: R42 Dizziness and giddiness (principal); R03.0 Elevated blood-pressure reading, without diagnosis of hypertension; J45.909 Unspecified asthma, uncomplicated; J45.901 Unspecified asthma with (acute) exacerbation; I10 Essential (primary) hypertension
CPT/HCPCS: 94664; 99283; J7644

== ENCOUNTER 2017-10-12 12:35 | Emergency (ER) | payer MEDICARE ==
[2017-10-12] VITALS (9 sets, daily range): BP systolic 111–138; BP diastolic 68–86; PULSE 72–96; RESP 16; TEMP 97.9; O2SAT 93–99
[~2017-10-12] VITALS: Ht 157.5 cm; Wt 63.5 kg
[~2017-10-12 12:35] MED LIST changes: +MECL-62 PO
--- NOTE | 2017-10-12 12:41 | PD ---
HPI Chief Complaint: Shortness of breath Time Seen by Provider: 12:40 Travel History International Travel<30 days: No Contact w/Intl Traveler<30days: No Traveled to known affect area: No History of Present Illness HPI Patient was admitted on October 07 and discharged on October 10 for asthma exacerbation. Primary care is Dr. NUÑEZ. Patient has Dr. Rodriguez call for cardiology and Dr. Jason for pulmonary. Since patient was discharged she was given additional breathing treatments including theophylline. Patient took theophylline this morning and started to develop nausea vomiting diarrhea flush sensation and a sense of restlessness about 30 minutes to 40 minutes after taking the pill. This is the main reason that the patient comes in today. Apparent allergy to aspirin and doxycycline Past medical history significant for thyroid removal in 2007, resulting hypothyroidism, tonsillectomy, wears corrective lenses, hypertension, pacemaker , [employer], bradycardia, hypercholesterolemia, asthma, arthritis, left knee arthroplasty PFSH Past Medical History Arthritis: Yes Autoimmune Disease: No Anxiety: No Depression: No Heart Rhythm Problems: Yes (hilda) Cancer: No Cardiovascular Problems: Yes (htn on meds) High Cholesterol: Yes Diabetes: No Diminished Hearing: No Genitourinary: No Neurologic: No Reproductive: No Respiratory: Yes (ASTHMA) Thyroid Disease: Yes (2007 rt thyroid remove) Menopausal: Yes Past Surgical History Cardiac Surgery: Yes (pacemaker ) Pacemaker: Yes ([employer] placed 2012) Tonsillectomy: Yes Other Surgery: Yes (thyroid -goiter removed - varicose veins -vein stripping) Social History Alcohol Use: Yes (occas. beer) Tobacco Use: No (40 yrs ago approx 1 ppd cigs) Substance Use: No Allergies-Medications (Allergen,Severity, Reaction): Coded Allergies: doxycycline (Verified Allergy, Intermediate, dizzy, 10/12/17) aspirin (Unverified Allergy, Mild, DIZZY, 10/12/17) Reported Meds & Prescriptions Reported Meds & Active Scripts Active Proventil Hfa 6.7 GM Inh (Albuterol Sulfate) 90 Mcg/Act Aer 2 Puff INH Q4-6H PRN Meclizine (Meclizine HCl) 25 Mg Tab 25 Mg PO TID PRN Prednisone 20 Mg Tab 20 Mg PO DAILY 4 Days Yosi-24 (Theophylline) 200 Mg Cap 200 Mg PO DAILY 30 Days Montelukast (Montelukast Sodium) 10 Mg Tab 10 Mg PO HS 30 Days [Budeson-Formot 160-4.5 Mcg Inh] 60 PUFF Aero 2 Puff INH Q12HR 30 Days Dextromethorphan/Guaifene 10-100 mg/5Ml (Dextromethorphan-Guaifenesin) 100 Mg- 10 Mg/5 Ml Syp 10 Ml PO Q6H PRN 5 Days Reported Losartan (Losartan Potassium) 25 Mg Tab 25 Mg PO DAILY Atorvastatin (Atorvastatin Calcium) 40 Mg Tab 40 Mg PO HS Physical Exam Narrative GENERAL: SKIN: Warm and dry. HEAD: Atraumatic. Normocephalic. EYES: Pupils equal and round. No scleral icterus. No injection or drainage. ENT: No nasal bleeding or discharge. Mucous membranes pink and moist. NECK: Trachea midline. No JVD. CARDIOVASCULAR: Regular rate and rhythm. RESPIRATORY: No accessory muscle use. mild scattered wheezing but with good tidal volume movment bilaterally. GASTROINTESTINAL: Abdomen soft, non-tender, nondistended. Hepatic and splenic margins not palpable. MUSCULOSKELETAL: Extremities without clubbing, cyanosis, or edema. No obvious deformities. NEUROLOGICAL: Awake and alert. No obvious cranial nerve deficits. Motor grossly within normal limits. Five out of 5 muscle strength in the arms and legs. Normal speech. PSYCHIATRIC: Appropriate mood and affect; insight and judgment normal. Data Data Last Documented VS Vital Signs Date Time Temp Pulse Resp B/P (MAP) Pulse Ox O2 Delivery O2 Flow Rate FiO2 10/12/17 17:25 96 16 111/70 (84) 94 10/12/17 16:30 Room Air 10/12/17 14:18 21 10/12/17 13:42 2.00 10/12/17 12:35 97.9 Orders Orders Complete Blood Count With Diff (10/12/17 13:00) Comprehensive Metabolic Panel (10/12/17 13:00) Troponin I (10/12/17 13:00) B-Type Natriuretic Peptide (10/12/17 13:00) Prothrombin Time / Inr (Pt) (10/12/17 13:00) Act Partial Throm Time (Ptt) (10/12/17 13:00) Theophylline (Aminophylline) (10/12/17 13:00) Thyroid Stimulating Hormone (10/12/17 13:00) Chest, Single Ap (10/12/17 13:00) Methylprednisolone So Succ Inj (Solumedr (10/12/17 13:00) Magnesium Sulfate 1 Gm Premix (Magnesium (10/12/17 13:00) Albuterol Neb (Albuterol Neb) (10/12/17 13:00) Lorazepam Inj (Ativan Inj) (10/12/17 13:00) Ondansetron Odt (Zofran Odt) (10/12/17 13:15) Potassium Chloride Eff (K-Lyte Cl Eff) (10/12/17 15:00) Ed Discharge Order (10/12/17 16:41) Labs Laboratory Tests Test 10/12/17 13:25 10/12/17 14:55 White Blood Count 13.2 TH/MM3 Red Blood Count 4.72 MIL/MM3 Hemoglobin 14.5 GM/DL Hematocrit 42.7 % Mean Corpuscular Volume 90.6 FL Mean Corpuscular Hemoglobin 30.7 PG Mean Corpuscular Hemoglobin Concent 33.9 % Red Cell Distribution Width 12.4 % Platelet Count 157 TH/MM3 Mean Platelet Volume 9.1 FL Neutrophils (%) (Auto) 76.0 % Lymphocytes (%) (Auto) 15.1 % Monocytes (%) (Auto) 4.8 % Eosinophils (%) (Auto) 2.3 % Basophils (%) (Auto) 1.8 % Neutrophils # (Auto) 10.1 TH/MM3 Lymphocytes # (Auto) 2.0 TH/MM3 Monocytes # (Auto) 0.6 TH/MM3 Eosinophils # (Auto) 0.3 TH/MM3 Basophils # (Auto) 0.2 TH/MM3 CBC Comment AUTO DIFF Differential Total Cells Counted 100 Neutrophils % (Manual) 75 % Band Neutrophils % 4 % Lymphocytes % 15 % Monocytes % 4 % Eosinophils % 1 % Neutrophils # (Manual) 10.6 TH/MM3 Metamyelocytes 1 % Differential Comment FINAL DIFF MANUAL Platelet Estimate NORMAL Platelet Morphology Comment NORMAL Red Cell Morphology Comment NORMAL Blood Urea Nitrogen 18 MG/DL Creatinine 0.70 MG/DL Random Glucose 119 MG/DL Total Protein 6.0 GM/DL Albumin 3.0 GM/DL Calcium Level 8.0 MG/DL Alkaline Phosphatase 99 U/L Aspartate Amino Transf (AST/SGOT) 25 U/L Alanine Aminotransferase (ALT/SGPT) 73 U/L Total Bilirubin 1.0 MG/DL Sodium Level 137 MEQ/L Potassium Level 2.7 MEQ/L Chloride Level 104 MEQ/L Carbon Dioxide Level 22.6 MEQ/L Anion Gap 10 MEQ/L Estimat Glomerular Filtration Rate 80 ML/MIN Troponin I LESS THAN 0.02 NG/ML B-Type Natriuretic Peptide 35 PG/ML Thyroid Stimulating Hormone 3rd Gen 1.470 uIU/ML Theophylline Level 3.1 MCG/ML Prothrombin Time 10.5 SEC Prothromb Time International Ratio 1.0 RATIO Activated Partial Thromboplast Time 21.4 SEC MDM Medical Decision Making Medical Screen Exam Complete: Yes Emergency Medical Condition: Yes Medical Record Reviewed: Yes Differential Diagnosis Pancreatitis versus enteritis versus adverse effect of theophylline versus electrolyte imbalance Narrative Course The patient had a myocardial perfusion scan which was negative for stress- induced ischemia. Chest x-ray showed linear atelectasis on the left lung with trace pleural fluid but no pneumothorax Chest CT showed nodule in the left lower lobe likely atelectasis no infiltrate or mass all of these studies were performed on October 07 and Patient also had cardiac enzymes sets 3 all of which were negative Per chart review of the discharge instructions the patient was initiated on Atrovent theophylline and Symbicort. During her stay the patient was given Zithromax IV steroids and the patient was referred to a operations technician for further chronic management of her asthma Today's blood work shows a CBC of 13,000 with a neutrophil 76% which is within normal limits and most likely secondary to steroid use Electrolytes show a hypokalemia of 2.7, negative troponin, normal TSH Currently pending theophylline levels Chest x-ray read by radiologist as stable atelectasis scarring at the left lung base otherwise no acute abnormality At 1640 theophylline level is 3.1 which is nontoxic Diagnosis Primary Impression: Adverse effect to theophylline Patient Instructions: General Instructions, Theophylline (By mouth) Scripts Albuterol 6.7 GM Inh (Proventil Hfa 6.7 GM Inh) 90 Mcg/Act Aer 2 PUFF INH Q4-6H Y for SHORTNESS OF BREATH, #1 INHALER 1 Refill Prov: Doron Pham MD 10/12/17 Disposition: 01 DISCHARGE HOME Condition: Stable Doron Pham MD Oct 12, 2017 12:41
[2017-10-12] MEDS ORDERED: LORazepam 2 MG/ML VIAL IV PUSH ONE (13:00)
[2017-10-12] MEDS ORDERED: methylPREDNISolone SOD SUCC 125 MG/2 ML VIAL IV PUSH ONE (13:00)
[2017-10-12] MEDS ORDERED: MAGNESIUM SULFATE 1 GM PREMIX 100 ML IV ONE (13:00)
[2017-10-12] MEDS ORDERED: ONDANSETRON ODT 4 MG TAB PO ONE (13:15)
--- NOTE | 2017-10-12 13:19 | RADRPT ---
EXAM DATE: 10/12/2017 1:15 PM EDT AGE/SEX: 82 years / Female INDICATIONS: Short of breath. CLINICAL DATA: This is the patient's initial encounter. Patient reports that signs and symptoms have been present for 2 days and indicates a pain score of 0/10. MEDICAL/SURGICAL HISTORY: Hypothyroidism. Hypercholesterolemia. Hypertension. Bradycardia. A sthma. Arthritis. Tonsillectomy. Pacemaker. Partial thyroidectomy. Knee arthroplasty. COMPARISON: [facility], CHEST SINGLE AP, 10/08/2017. . FINDINGS: Stable dual lead pacemaker in place. Redemonstration of linear parenchymal opacities at the left lung base. No new focal pleural or parenchymal opacities. Cardiomediastinal contours are within normal li mits. Bony thorax is intact. CONCLUSION: 1. Stable atelectasis/scarring at the left lung base. 2. Otherwise, no acute abnormality or insignificant interval change. Electronically signed by: René Griffiths MD 10/12/2017 1:18 PM EDT
[2017-10-12] MEDS: RESP: ALBUTEROL 2.5 MG/3 ML NEB (SCH) INH (13:33)
[2017-10-12 13:43] LABS: AUTOMATED NEUTROPHIL # 10.1 TH/MM3 (1.8-7.7); BASOPHIL # 0.2 TH/MM3 (0-0.2); BASOPHIL % 1.8 % (0.0-2.0); EOSINOPHIL # 0.3 TH/MM3 (0-0.4); EOSINOPHIL % 2.3 % (0.0-4.0); HEMATOCRIT 42.7 % (35.0-46.0); HEMOGLOBIN 14.5 GM/DL (11.6-15.3); LYMPH % 15.1 % (9.0-44.0); MEAN CELL VOLUME 90.6 FL (80.0-100.0); MEAN CORPUSCULAR HEMOGLOBIN 30.7 PG (27.0-34.0); MEAN CORPUSCULAR HGB CONC 33.9 % (32.0-36.0); MEAN PLATELET VOLUME 9.1 FL (7.0-11.0); MONO % 4.8 % (0.0-8.0); MONOCYTE # 0.6 TH/MM3 (0-0.9); PLATELET COUNT 157 TH/MM3 (150-450); RED BLOOD COUNT 4.72 MIL/MM3 (4.00-5.30); RED CELL DISTRIBUTION WIDTH 12.4 % (11.6-17.2); WHITE BLOOD COUNT 13.2 TH/MM3 (4.0-11.0)
[2017-10-12 14:08] LABS: ALKALINE PHOSPHATASE 99 U/L (45-117); ALT (GPT) 73 U/L (10-53); AST (GOT) 25 U/L (15-37); BICARBONATE 22.6 MEQ/L (21.0-32.0); BLOOD UREA NITROGEN 18 MG/DL (7-18); CHLORIDE 104 MEQ/L (98-107); GLOMERULAR FILTRATION RATE 80 ML/MIN (>89); GLUCOSE,RANDOM 119 MG/DL (74-106); SODIUM (NA) 137 MEQ/L (136-145); TROPONIN I LESS THAN 0.02 NG/ML (0.02-0.05)
[2017-10-12 14:25] LABS: BANDS 4 % (0-6); LYMPHOCYTES 15 % (9-44); METAMYELOCYTES 1 % (0-1); MONOCYTES 4 % (0-8); NEUTROPHIL # MANUAL DIFF 10.6 TH/MM3 (1.8-7.7); POLYS (SEG NEUTROPHILS) 75 % (16-70)
[2017-10-12] MEDS ORDERED: POTASSIUM CHLORIDE 25 MEQ EFFERVESCENT TAB PO ONE (15:00)
[2017-10-12 15:37] LABS: PROTHROMBIN TIME - PATIENT 10.5 SEC (9.8-11.6)
[2017-10-12 16:00] LABS: THEOPHYLLINE 3.1 MCG/ML (10.0-20.0)
[2017-10-12] MEDS ORDERED: ALBU6.7H INH (17:00)
== END 2017-10-12 17:34 | disposition home or self-care (01) ==
LOC: PHED 12:35
DX: R11.2 Nausea with vomiting, unspecified (principal); R45.1 Restlessness and agitation; T48.6X5A Adverse effect of antiasthmatics, initial encounter; R06.02 Shortness of breath; M17.12 Unilateral primary osteoarthritis, left knee; E78.00 Pure hypercholesterolemia, unspecified; I10 Essential (primary) hypertension; E03.9 Hypothyroidism, unspecified; J45.901 Unspecified asthma with (acute) exacerbation; Z95.0 Presence of cardiac pacemaker
CPT/HCPCS: 71045; 80053; 80198; 83880; 84443; 84484; 85007; 85027; 85610; 85730; 94640; 94664; 96365; 96375; 99284; J2060; J2930; J3475; J7613